=== PATIENT | female | born 1965 | race Caucasian/White ===

== ENCOUNTER 2017-02-27 20:37 | Inpatient (IN) ==
[~2017-02-27 20:37] MED LIST: *HR* Etomidate 20 MG/10 ML AMPUL IVP ONE; *HR* Midazolam HCl 2 MG/2 ML VIAL IV ONE; *HR* Midazolam HCl 5 MG/5 ML VIAL IVP ONE
--- NOTE | 2017-02-27 23:35 | Anesthesia Procedures ---
Date of Encounter: 02/27/17 Time of Encounter: 11:20 Procedures: Anesthesia - Intubation Time out performed: Yes Sedative: Etomidate Amount Sedative given: 20mg Laryngoscope: video scope (Storz D-MAC) Assist device used: video scope ET Tube Size: 7 Tube secured depth (cm): 24 Tube secured location: lips Tube Placement Confirmation: visualized tube passing through cords, equal breath sounds bilaterally, confirmation by colorimetric device Patient tolerated procedure: no complications Intubation complications: difficult intubation (Anterior airway. Grade 2 view with D-Mac after additional sedation.) Additional comments: Multiple attempts prior to [employer] arrival. Small amount of bleeding in back of throat present. Able to secure airway with additional sedation.
[2017-02-27] MEDS ORDERED: *HR* Midazolam HCl 2 MG/2 ML VIAL IV ONE (23:43)
[2017-02-27] MEDS ORDERED: Naloxone 0.4 MG/ML INJ IVP PRN (23:43)
[2017-02-27] MEDS ORDERED: Lacri-Lube 3.5 GM TUBE BOTH EYES PRN (23:43)
[2017-02-27] MEDS ORDERED: Acetaminophen 325 MG TABLET PO PRN (23:43)
[2017-02-27] MEDS ORDERED: 0.9 % Sodium Chloride w KCl 20 MEQ/1,000 ML MLS IVC SCH (23:45)
[2017-02-28 00:18] LABS: Amphetamine Screen,Urine Negative ng/mL (Cutoff=1000); Barbiturate Screen,Urine Negative ng/mL (Cutoff=200); Benzodiazepines Screen,Urine Positive ng/mL (Cutoff=200); Cannabinoid Screen,Urine Negative ng/mL (Cutoff = 50); Cocaine Screen,Urine Negative ng/mL (Cutoff= 300); Opiate Screen,Urine Negative ng/mL (Cutoff=300); Phencyclidine Screen,Urine Negative ng/mL (Cutoff=25)
[2017-02-28 00:45] LABS: ABG Base Excess 1 mEq/L (-2 to 3); ABG HCO3 28 mEq/L (21-27); ABG Oxygen Saturation 95 % (95-98); ABG PCO2 55 mmHg (35-45); ABG PH 7.31 pH Units (7.32-7.45); ABG PO2 86 mmHg (85-104); ABG TCO2 29 mEq/L (20-26); Blood Gas Modality ASSIST CONTROL; Blood Gas PEEP 5 cm H2O; Blood Gas Respiration Rate 14; Blood Gas VT 500 cc
[2017-02-28] MEDS: Lacri-Lube 3.5 GM TUBE BOTH EYES SCH ×6 (00:47→21:14)
--- NOTE | 2017-02-28 00:53 | Internal Med History&Physical ---
Date of Encounter: 02/27/17 Time of Encounter: 23:00 Assessment and Plan (1) Acute respiratory failure Current visit: Yes Status: Acute 1. Patient arrived and we called a Rapid Response immediately upon arrival due to respiratory failure and inability to maintain her airway. 2. ETT secured as in [place]. 3. Continue mechanical ventilation, sedation, and life-supporting measures in ICU. 4. Will monitor ABG's and adjust ventilator to correct respiratory acidosis. 5. Consult Pulmonology to assume care in the morning in ICU. Total of 75 minutes critical care thus far caring for patient. Qualifiers: Respiratory failure complication: hypoxia and hypercapnia Qualified Code(s) : J96.01 - Acute respiratory failure with hypoxia; J96.02 - Acute respiratory failure with hypercapnia; J96.02 - Acute respiratory failure with hypercapnia; J96.02 - Acute respiratory failure with hypercapnia (2) Tricyclic overdose Current visit: Yes Status: Acute 1. Patient is receiving activated charcoal via OG tube now that her airway is secured with ETT. 2. Patient is receiving Sodium Bicarbonate per Poison Control guidance. 3. Monitor on telemetry in ICU. 4. Serial EKG's to monitor QRS and QTc intervals. 5. Supportive measures in ICU. 6. Suicide precautions and 24 hour sitter once patient is awake and extubated. 7. Consult psychiatry once patient medically stabilized. Qualifiers: Encounter type: initial encounter Injury intent: intentional self-harm Qualified Code(s): T43.012A - Poisoning by tricyclic antidepressants, intentional self-harm, initial encounter (3) DVT prophylaxis Current visit: Yes Status: Acute 1. Heparin SQ. Internal Medicine - H&P: HPI Chief complaint: suicide attempt; amitryptiline overdose Admitted From: Hospital to Hospital Transfer Plans for Post Hospital Care: Transfer Psych Facility History of present illness: Ms. Peter is a 52 year old female who was transferred here from [facility] ER for suicide attempt with ingestion of 18 pills of amitriptyline 100 mg dose. Per my discussions with the ER staff, patient was awake, alert, conversant, and "pissed off at the world". She was actively suicidal and was transferred here for ongoing care and psychiatry consultation. Per my discussions with the ER staff, patient had no untoward effects at that moment and had no airway, respiratory, or hemodynamic issues. Once patient arrived to the floor with transportation, there was an immediate call for help to her room by the transport medics as she was having respiratory compromise. I came to the bedside immediately as I was at a patient's room nearby. Patient was having difficulty maintaining a patent airway, had periods of apnea, and was unresponsive. Pupils were dilated roughly 5-6 mm, and I could not appreciate a gag reflex. She did have a pulse. Because of her unresponsiveness and inability to protect her airway, I called for rapid response and we proceeded with intubation. Intubation was difficult due to a very anterior airway. Respiratory therapy failed twice, and then I proceeded to attempt an airway. Unfortunately, I failed as well, and then I called for anesthesia support. Patient continued to received bag mask ventilation. Once anesthesia arrived, they were able to secure an airway on the second attempt. Once an airway was secured, patient was moved to intensive care unit and stabilized. I spoke with poison control center and noted that on her second EKG, she was starting to have some QRS prolongation of roughly 115 ms. Her prior EKG had a QRS of 95 ms. Poison control recommended giving sodium bicarbonate now and to recheck an EKG in a few hours. We are proceeding with such measures. Additionally, I did order activated charcoal to be given through her OG tube now that we have an airway established. Of note, she did have a suicide note which confirms her intent to hurt herself. Additionally, the pills she took were those from a friend. They were brought by transport medics. I gave those meds to the pharmacist to confirm, and she confirmed that they were amitriptyline. I then asked her to destroy them. Past Med Surg Social Fam HX - Past Medical History Source: old records reviewed, other (discussions with [facility] ER staff) Medical history: GERD, hypertension Psychiatric history: depression, prior suicide attempt - Past Surgical History Surgical History: cholecystectomy - Social History Smoking Status: Current every day smoker Smokeless Tobacco Status: No Alcohol use: rarely, recent Drug use: none - Family History Mother Family Member Ethnicity: Non- Hx Family Cardiac Disorders: Yes Hx Family Respiratory Disorders: No Hx Family Cancer: No Hx Family GI Disorders: No Hx Family Endocrine Disorder: No Hx Family Neuromuscular Disorders: No Hx Family Neurologic Disorders: No Hx Family HEENT Disorders: No Hx Family Autoimmune Disorders: No Internal Medicine - H&P: Meds Lisinopril [Zestril] 20 mg PO DAILY 01/18/17 [History] PARoxetine HCl [Paroxetine HCl] 10 mg PO HS 02/27/17 [History] Prazosin [Minipress] 1 mg PO BID 02/27/17 [History] Ranitidine HCl [Heartburn Relief] 150 mg PO HS 02/27/17 [History] hydrOXYzine HCl [Hydroxyzine HCl] 25 mg PO DAILY 02/27/17 [History] 3 Allergy/AdvReac Type Severity Reaction Status Date / Time codeine AdvReac Itching Verified 07/18/15 20:25 naproxen AdvReac Gastrointestinal Verified 07/18/15 23:37 Upset ROS unobtainable: due to endotracheal tube, due to mental status - Constitutional Vitals: Temp Pulse Resp BP Pulse Ox 96.7 F L 95 14 104/78 97 02/27/17 23:35 02/28/17 00:31 02/28/17 00:31 02/28/17 00:31 02/28/17 00:31 Exam: unresponsiveness and unable to protect airway upon arrival; short periods of apnea as well - Head Head exam: Present: atraumatic, normal inspection - Expanded Head Exam Head exam expanded: Absent: abrasion, contusion, general tenderness, laceration - Eye Eye exam: Absent: scleral icterus Additional comments: pupils 5-6 mm bilaterally - ENT ENT exam: Present: mucous membranes dry, normal exam - Neck Neck exam general surgery: Present: full ROM, supple, trachea midline. Absent: lymphadenopathy, tenderness, nuchal rigidity, thyromegaly - Respiratory Respiratory exam: Present: accessory muscle use, rhonchi. Absent: chest wall tenderness, rales, wheezes Additional comments: periods of apnea - Cardiovascular Cardiovascular exam: Present: RRR, +S1, +S2. Absent: diastolic murmur, JVD, systolic murmur - GI/Abdominal GI/Abdominal exam: Present: soft. Absent: hepatomegaly, splenomegaly, tenderness, no peritoneal signs - Extremities Exam Extremities exam: Present: normal capillary refill, warm, radial pulses palpable and symmetrical. Absent: cyanotic, joint swelling, pedal edema, tenderness Additional comments: no obvious cut kurtz, injection sites, or signs of self inflicted injury to her extremities or her skin - Back Exam Back exam: Present: normal inspection - Neurological Exam Additional comments: unresponsive on arrival; unable to protect airway - Psychiatric Psychiatric exam: Present: suicidal ideation Additional comments: suicide attempt as noted above - Skin Skin exam: Present: dry, warm. Absent: rash Additional comments: no cut kurtz, injection sites, or signs of self mutilation Internal Med - H&P Results - Labs Labs: I reviewed labs from [facility] include the following: WBC 8.0 Hemoglobin 13.5 Hematocrit 37.8 Platelets 243 Sodium 142 Potassium 3.5 Chloride 108 Carbon dioxide 21 BUN 15 Creatinine 0.73 Glucose 121 Urine drug screen: Negative at [facility]; I repeated it here and it was positive for benzodiazepines, but this is indicative of Versed administered for intubation. The rest of her toxicology screen was negative. She did have alcohol in her system at [facility] with a level 137 mg/dL. - EKG Data -: EKG Interpreted by Myself EKG shows normal: sinus rhythm - EKG Data Prior EKG available for review: yes EKG comments: 02/28/17 01:04 Sinus rhythm with initial QRS of 95 ms at [facility], followed by QRS duration of 115 ms once in ICU. QTc interval 440 ms. - Diagnostic Studies Chest x-ray Status: image reviewed by me (ETT in place)
[2017-02-28 03:15] LABS: ABG Base Excess 2 mEq/L (-2 to 3); ABG HCO3 28 mEq/L (21-27); ABG Oxygen Saturation 91 % (95-98); ABG PCO2 48 mmHg (35-45); ABG PH 7.37 pH Units (7.32-7.45); ABG PO2 63 mmHg (85-104); ABG TCO2 29 mEq/L (20-26); Blood Gas Modality ASSIST CONTROL; Blood Gas PEEP 5 cm H2O; Blood Gas Respiration Rate 14; Blood Gas VT 500 cc
[2017-02-28 03:51] LABS: Prothrombin Time 10.9 Seconds (9.4-12.1)
[2017-02-28 04:01] LABS: Activated Partial Thrombo Time 16.6 Seconds (26.0-36.0)
[2017-02-28 04:08] LABS: Alanine Aminotransferase 18 Units/L (0-55); Albumin 3.2 g/dL (3.5-5.0); Albumin/Globulin Ratio 0.9 (1.1-2.2); Alkaline Phosphatase 106 Units/L (38-126); Aspartate Amino Transferase 23 Units/L (5-34); BUN/Creatinine Ratio 21 (6-26); Bilirubin,Total 0.5 mg/dL (0.2-1.2); Blood Urea Nitrogen 15 mg/dL (7-20); Calcium 8.3 mg/dL (8.6-10.8); Carbon Dioxide 21 mEq/L (19-29); Chloride 110 mEq/L (98-109); Globulin 3.5 g/dL (2.4-3.5); Glucose 124 mg/dL (70-99); Osmolality,Calculated 294 (280-300); Potassium 4.6 mEq/L (3.5-4.5); Sodium 141 mEq/L (136-145); Total Protein 6.7 g/dL (6.0-8.3); eGFR For African Americans > 60 (> 60); eGFR For Non-African Americans > 60 (> 60)
[2017-02-28] MEDS: Sodium Bicarbonate 150 MEQ in D5% in Water 1,000 ML IVC SCH ×3 (04:30→16:59)
--- NOTE | 2017-02-28 04:39 | Event Note ---
Date of Encounter: 02/28/17 Time of Encounter: 04:00 ABG stable; repeat EKG with improvement in QRS but still prolonged. I changed her MIV to D5W with 3 amps NaHCO3 as recommended by poison control per our prior conversation. Will repeat EKG later this morning.
[2017-02-28 05:27] LABS: Basophils # 0.1 K/mcL (0.0-0.2); Basophils % 0.3 %; Eosinophils # 0.1 K/mcL (0.0-0.6); Eosinophils % 0.6 %; Hematocrit 42.4 % (35.3-44.9); Hemoglobin 13.8 g/dL (11.5-15.4); Immature Granulocytes % 0.5 % (0-4); Immature Platelets 2.7 % (1.1-6.1); Lymphocytes # 1.8 K/mcL (0.6-4.6); Lymphocytes % 10.3 %; Mean Corpuscular HGB Conc 32.5 g/dL (31.6-35.5); Mean Corpuscular Hemoglobin 30.3 pg (28.0-33.3); Mean Corpuscular Volume 93.2 fL (83.0-100.0); Mean Platelet Volume 9.8 fL (9.4-12.4); Monocytes # 1.2 K/mcL (0.0-1.3); Monocytes % 6.5 %; Platelet Count 195 K/mcL (140-400); Red Blood Count 4.55 M/mcL (3.82-4.97); Red Cell Distribution Width 11.9 % (11.5-14.5); Segmented Neutrophils % 81.8 %
[2017-02-28 05:28] LABS: Neutrophils # 14.5 K/mcL (1.6-8.9)
[2017-02-28] MEDS: *HR* Heparin 5,000 UNIT/ML VIAL SQ SCH ×2 (05:41→17:22)
[2017-02-28] MEDS: Pantoprazole 40 MG VIAL IVPB SCH (05:41)
[2017-02-28] MEDS: Docusate Oral Soln 100 MG/10 ML UDC GTUBE SCH ×2 (08:40→21:12)
[2017-02-28] MEDS: Chlorhexidine Rinse 15 ML MOUTHWASH MM SCH ×2 (08:40→21:14)
--- NOTE | 2017-02-28 09:10 | Pulmonology Progress Note ---
<TashDurga W - Last Filed: 02/28/17 10:01> Date of Encounter: 02/28/17 Objective PUL Vital signs: Last Vital Signs Temp 98.5 F 02/28/17 07:50 Pulse 118 02/28/17 08:30 Resp 21 02/28/17 08:30 BP 130/88 02/28/17 08:30 Pulse Ox 96 02/28/17 08:30 Ventilator Settings Ventilator Settings: Ventilator Settings, Last 8 Hours Ventilator Mode VC+ Ventilator Mode VC+ Ventilator Mode VC+ Ventilator Mode VC+ Ventilator Mode VC+ Ventilator Mode VC+ Ventilator Mode VC+ Ventilator Mode VC+ Ventilator Mode VC+ Ventilator Mode VC+ Ventilator Mode VC+ Ventilator Mode VC+ Ventilator Tidal Volume 500 Setting Ventilator Tidal Volume 500 Setting Ventilator Tidal Volume 500 Setting Ventilator Tidal Volume 500 Setting Ventilator Tidal Volume 500 Setting Ventilator Tidal Volume 500 Setting Ventilator Tidal Volume 500 Setting Ventilator Tidal Volume 500 Setting Ventilator Tidal Volume 500 Setting Ventilator Tidal Volume 500 Setting Ventilator Tidal Volume 500 Setting Ventilator Tidal Volume 500 Setting Ventilator Respiratory Rate 14 Setting Ventilator Respiratory Rate 14 Setting Ventilator Respiratory Rate 14 Setting Ventilator Respiratory Rate 14 Setting Ventilator Respiratory Rate 14 Setting Ventilator Respiratory Rate 14 Setting Ventilator Respiratory Rate 14 Setting Ventilator Respiratory Rate 14 Setting Ventilator Respiratory Rate 14 Setting Ventilator Respiratory Rate 14 Setting Ventilator Respiratory Rate 14 Setting Ventilator Respiratory Rate 14 Setting Actual Respiratory Rate 21 Actual Respiratory Rate 18 Actual Respiratory Rate 20 Actual Respiratory Rate 18 Actual Respiratory Rate 16 Actual Respiratory Rate 18 Actual Respiratory Rate 14 Actual Respiratory Rate 14 Actual Respiratory Rate 14 Actual Respiratory Rate 14 Actual Respiratory Rate 14 Positive End Expiratory 5 Pressure Positive End Expiratory 5 Pressure Positive End Expiratory 5 Pressure Positive End Expiratory 5 Pressure Positive End Expiratory 5 Pressure Positive End Expiratory 5 Pressure Positive End Expiratory 5 Pressure Positive End Expiratory 5 Pressure Positive End Expiratory 5 Pressure Positive End Expiratory 5 Pressure Positive End Expiratory 5 Pressure Positive End Expiratory 5 Pressure Peak Inspiratory Airway 29 Pressure Peak Inspiratory Airway 38 Pressure Peak Inspiratory Airway 38 Pressure Peak Inspiratory Airway 42 Pressure Peak Inspiratory Airway 38 Pressure Peak Inspiratory Airway 33 Pressure Peak Inspiratory Airway 33 Pressure Peak Inspiratory Airway 31 Pressure Peak Inspiratory Airway 30 Pressure Results - Laboratory Findings CBC and BMP: 02/28/17 05:05 02/28/17 03:33 ABG ABG pH 7.37 pH Units (7.32-7.45) 02/28/17 03:11 ABG pCO2 48 mmHg (35-45) H 02/28/17 03:11 ABG pO2 63 mmHg (85-104) L 02/28/17 03:11 ABG O2 Saturation 91 % (95-98) L 02/28/17 03:11 PT/INR, D-dimer PT 10.9 Seconds (9.4-12.1) 02/28/17 03:33 Abnormal lab findings: Abnormal lab results WBC 17.7 K/mcL (4.3-11.1) H D 02/28/17 05:05 Neutrophils # 14.5 K/mcL (1.6-8.9) H 02/28/17 05:05 APTT 16.6 Seconds (26.0-36.0) L 02/28/17 03:33 ABG pCO2 48 mmHg (35-45) H 02/28/17 03:11 ABG pO2 63 mmHg (85-104) L 02/28/17 03:11 ABG HCO3 28 mEq/L (21-27) H 02/28/17 03:11 ABG Total CO2 29 mEq/L (20-26) H 02/28/17 03:11 ABG O2 Saturation 91 % (95-98) L 02/28/17 03:11 Potassium 4.6 mEq/L (3.5-4.5) H D 02/28/17 03:33 Chloride 110 mEq/L (98-109) H 02/28/17 03:33 Glucose 124 mg/dL (70-99) H 02/28/17 03:33 Calcium 8.3 mg/dL (8.6-10.8) L 02/28/17 03:33 Albumin 3.2 g/dL (3.5-5.0) L 02/28/17 03:33 Albumin/Globulin Ratio 0.9 (1.1-2.2) L 02/28/17 03:33 U Benzodiazepines Scrn Positive ng/mL (Peefrf=213) H 02/28/17 00:00 - Clinical Findings Intake & Output: Intake & Output 02/27/17 02/28/17 02/28/17 23:59 07:59 15:59 Intake Total 0 / 0 880 / 880 Output Total 0 / 0 935 / 935 Balance 0 / 0 -55 / -55 Weight 105.3 kg 105.3 kg Consult Discharge Plan - Plan Referrals: NONE,PCP [Primary Care Provider] - - Attending Attestation I examined this patient and my medical decision-making was reviewed with the Resident Physician. I agree with the documented findings, disposition and treatment plan as described except to the extent set forth below. We independently had [id number] contact with the patient Critical care performed: Time is exclusive of separately billable procedures. Time includes: direct patient care, patient reassessment, coordination of patient care, interpretation of data (laboratory data, radiology data, and respiratory data), review of patient's medical records, medical consultation and documentation of patient care Procedures excluded from critical care time: 35min Patient seen and examined at bedside Labs, radiology, chart personally reviewed. Management was reviewed during multidisciplinary critical care rounds. CUPOLA MELTER: Intubated and sedated on vent. appears to have presented with intentional overdose on TCA. Was sedated and not protecting airway requring intubation. Examination without focal deficit. Holding sedation for CUPOLA MELTER examination. Psych consult/sitter preacautions Pulm: Acute respiratory failure requiing intubation. Acceptable oxygenation/ ventilation today. repeat CXR today. Difficult intubation requiring anesthesia help after 3 prior attempts. Cuff leak prior to liberation Cards:QTC wnl today monitor on tele. Sodium Bicarb infusion for TCA overdose FEN-GI:NPO for PPI prophylaxis given Renal: No evidence of metabolic acidosis. Utox otherwise negative. Monitor Electrolytes per protocol ID: Leuckocytosis and tachycardic likely seconday to stress but have concern for severe sepsis. Jeffery Cultures obtained. CXR without focal process. Lacatate also elevated. Start empiric Abx for possible aspiration. IV crystalloid will be given. Heme/Onc: DVT prophylaxis given Endo: Glucose Monitored Integ/MSK: Skin Care per routine ICU Nursing Protocol to prevent ulcers. Lines: All lines examined without evidence of infection : Dispo: Remain in ICU for ongoing care CODE:Full Code. <Barbara Morgan - Last Filed: 02/28/17 14:35> Date of Encounter: 02/28/17 Time of Encounter: 08:20 Assessment and Plan (1) Acute respiratory failure Current Visit: Yes Status: Acute -likely resulting from tricyclic antidepressant overdose -currently intubated, on mechanical ventilation Qualifiers: Respiratory failure complication: hypoxia and hypercapnia Qualified Code(s) : J96.01 - Acute respiratory failure with hypoxia; J96.02 - Acute respiratory failure with hypercapnia; J96.02 - Acute respiratory failure with hypercapnia; J96.02 - Acute respiratory failure with hypercapnia (2) Severe sepsis Current Visit: Yes Status: Acute -possible source of infection: aspiration PNA -reported episode of vomiting and aspiration last night, patient becoming apneic and unresponsive -Day 1: Unasyn 3g -meets criteria for severe sepsis based on: -Temp 101.3, pulse 128, WBC 17.7, lactic acid 3.2, and acute respiratory failure (on ventilator) -peripheral blood cultures x2, urine culture, sputum culture ordered (3) Tricyclic overdose Current Visit: Yes Status: Acute -reported to have taken 18 pills of amytriptiline 100mg -serial EKG's to continue monitoring QRS and QTc changes -most recently QRS # and QTc # -sodium bicarb drip @ 75 mg/hr -suicide precautions, will need sitter once awake and extubated -once awake and medically stable, will consult psychiatry Qualifiers: Encounter type: initial encounter Injury intent: intentional self-harm Qualified Code(s): T43.012A - Poisoning by tricyclic antidepressants, intentional self-harm, initial encounter (4) Leukocytosis Current Visit: Yes Status: Acute -WBC 17.7 today, increase from [facility] labs showing WBC 8.0 -concern for aspiration PNA -Sputum cultures ordered -Day 1: Unasyn 3g IV Q6hr Qualifiers: Leukocytosis type: unspecified Qualified Code(s): D72.829 - Elevated white blood cell count, unspecified (5) DVT prophylaxis Current Visit: No Status: Acute -Heparin 5000 units SQ Q12hr Objective PUL Vital signs: Last Vital Signs Temp 98.5 F 02/28/17 07:50 Pulse 113 02/28/17 07:30 Resp 18 02/28/17 07:45 BP 133/95 02/28/17 07:30 Pulse Ox 95 02/28/17 07:45 Ventilator Settings Ventilator Settings: Ventilator Settings, Last 8 Hours Ventilator Mode VC+ Ventilator Mode VC+ Ventilator Mode VC+ Ventilator Mode VC+ Ventilator Mode VC+ Ventilator Mode VC+ Ventilator Mode VC+ Ventilator Mode VC+ Ventilator Mode VC+ Ventilator Mode VC+ Ventilator Mode VC+ Ventilator Tidal Volume 500 Setting Ventilator Tidal Volume 500 Setting Ventilator Tidal Volume 500 Setting Ventilator Tidal Volume 500 Setting Ventilator Tidal Volume 500 Setting Ventilator Tidal Volume 500 Setting Ventilator Tidal Volume 500 Setting Ventilator Tidal Volume 500 Setting Ventilator Tidal Volume 500 Setting Ventilator Tidal Volume 500 Setting Ventilator Tidal Volume 500 Setting Ventilator Respiratory Rate 14 Setting Ventilator Respiratory Rate 14 Setting Ventilator Respiratory Rate 14 Setting Ventilator Respiratory Rate 14 Setting Ventilator Respiratory Rate 14 Setting Ventilator Respiratory Rate 14 Setting Ventilator Respiratory Rate 14 Setting Ventilator Respiratory Rate 14 Setting Ventilator Respiratory Rate 14 Setting Ventilator Respiratory Rate 14 Setting Ventilator Respiratory Rate 14 Setting Actual Respiratory Rate 18 Actual Respiratory Rate 20 Actual Respiratory Rate 18 Actual Respiratory Rate 16 Actual Respiratory Rate 18 Actual Respiratory Rate 14 Actual Respiratory Rate 14 Actual Respiratory Rate 14 Actual Respiratory Rate 14 Actual Respiratory Rate 14 Positive End Expiratory 5 Pressure Positive End Expiratory 5 Pressure Positive End Expiratory 5 Pressure Positive End Expiratory 5 Pressure Positive End Expiratory 5 Pressure Positive End Expiratory 5 Pressure Positive End Expiratory 5 Pressure Positive End Expiratory 5 Pressure Positive End Expiratory 5 Pressure Positive End Expiratory 5 Pressure Positive End Expiratory 5 Pressure Peak Inspiratory Airway 38 Pressure Peak Inspiratory Airway 38 Pressure Peak Inspiratory Airway 42 Pressure Peak Inspiratory Airway 38 Pressure Peak Inspiratory Airway 33 Pressure Peak Inspiratory Airway 33 Pressure Peak Inspiratory Airway 31 Pressure Peak Inspiratory Airway 30 Pressure Results - Laboratory Findings CBC and BMP: 02/28/17 05:05 02/28/17 03:33 ABG ABG pH 7.37 pH Units (7.32-7.45) 02/28/17 03:11 ABG pCO2 48 mmHg (35-45) H 02/28/17 03:11 ABG pO2 63 mmHg (85-104) L 02/28/17 03:11 ABG O2 Saturation 91 % (95-98) L 02/28/17 03:11 PT/INR, D-dimer PT 10.9 Seconds (9.4-12.1) 02/28/17 03:33 Abnormal lab findings: Abnormal lab results WBC 17.7 K/mcL (4.3-11.1) H D 02/28/17 05:05 Neutrophils # 14.5 K/mcL (1.6-8.9) H 02/28/17 05:05 APTT 16.6 Seconds (26.0-36.0) L 02/28/17 03:33 ABG pCO2 48 mmHg (35-45) H 02/28/17 03:11 ABG pO2 63 mmHg (85-104) L 02/28/17 03:11 ABG HCO3 28 mEq/L (21-27) H 02/28/17 03:11 ABG Total CO2 29 mEq/L (20-26) H 02/28/17 03:11 ABG O2 Saturation 91 % (95-98) L 02/28/17 03:11 Potassium 4.6 mEq/L (3.5-4.5) H D 02/28/17 03:33 Chloride 110 mEq/L (98-109) H 02/28/17 03:33 Glucose 124 mg/dL (70-99) H 02/28/17 03:33 Calcium 8.3 mg/dL (8.6-10.8) L 02/28/17 03:33 Albumin 3.2 g/dL (3.5-5.0) L 02/28/17 03:33 Albumin/Globulin Ratio 0.9 (1.1-2.2) L 02/28/17 03:33 U Benzodiazepines Scrn Positive ng/mL (Qsyfzf=704) H 02/28/17 00:00 - Clinical Findings Intake & Output: Intake & Output 02/27/17 02/28/17 02/28/17 23:59 07:59 15:59 Intake Total 0 / 0 880 / 880 Output Total 0 / 0 935 / 935 Balance 0 / 0 -55 / -55 Weight 105.3 kg 105.3 kg
[2017-02-28] MEDS: FentaNYL (PF) 1,000 MCG in 0.9 % Sodium Chloride 80 ML IVC SCH ×3 (10:18→20:59)
[2017-02-28] MEDS ORDERED: Ringers Solution, Lactated 500 ML IVC ONE ×2 (11:30→12:00)
[2017-02-28] MEDS ORDERED: Ringers Solution, Lactated 1,000 ML IVC ONE ×2 (11:30→15:13)
[2017-02-28] MEDS ORDERED: Calcium Gluconate 1,000 MG in D5% in Water 100 ML IVPB PRN (11:43)
[2017-02-28] MEDS ORDERED: Potassium Phosphate 44 MEQ in 0.9 % Sodium Chloride 250 ML IVPB PRN (11:43)
[2017-02-28] MEDS ORDERED: Ampicillin/Sulbactam 3,000 MG in 0.9 % Sodium Chloride Mini Bag 100 ML IVPB SCH (12:00)
[2017-02-28 12:29] LABS: Ionized Calcium 1.07 mmol/L (1.15-1.35)
[2017-02-28 12:30] LABS: Magnesium 1.6 mg/dL (1.6-2.6)
[2017-02-28] MEDS: Ampicillin/Sulbactam 3,000 MG in 0.9 % Sodium Chloride Mini Bag 100 ML IVPB SCH ×2 (13:37→18:32)
--- NOTE | 2017-02-28 15:07 | Pre-Sedation Evaluation ---
Pre-sedation evaluation - Pre-sedation checklist Date of procedure: 02/28/17 Procedure: Bronchoscopy Recent Vitals: Last Vital Signs Temp 102 F H 02/28/17 14:00 Pulse 118 02/28/17 14:00 Resp 20 02/28/17 14:00 BP 95/56 02/28/17 14:00 Pulse Ox 94 02/28/17 14:00 H&P (including ROS) documented in medical record: Yes Previous reaction to sedatives/anesthetics: No Dietary Status: NPO after Midnight Possible difficult airway: No ASA Classification *see protocol: CLASS III-Severe systemic disease (Patient is intubated in ICU )
[2017-02-28] MEDS ORDERED: Ringers Solution, Lactated 1,000 ML ONE (15:19)
--- NOTE | 2017-02-28 16:35 | Procedure Note ---
<Gume Redmond - Last Filed: 02/28/17 16:36> Date of procedure: 02/28/17 Pre-op diagnosis: Hypotension Post-op diagnosis: same Procedure: Central venous catheter placement: Written consent was unable to be obtained, multiple attempts to reach the family were unsuccessful. It was agreed upon by the nursing staff as well as the attending physician that the procedure was emergent. Timeout was performed. The right inguinal area was surveyed using ultrasound and deemed to be a suitable target. The patient was cleaned and draped in the usual sterile fashion. Under ultrasound guidance the introducer needle was advanced into the right femoral vein. Dark red, nonpulsatile blood flow was returned. The guidewire was advanced through the introducer needle and into the right femoral vein without resistance. Using ultrasound the guidewire was visualized within the vein. The introducer needle was removed, and vivian in the skin was made, and the skin and soft tissues were dilated. A 20 cm, triple-lumen catheter was advanced over the guidewire and into the right femoral vein. The guidewire was removed intact. All 3 ports were tested and shown to draw blood and flushed easily. The catheter was sutured in place. The patient tolerated the procedure well, there are no immediate complications. Anesthesia: GETA Surgeon: Gume Redmond Estimated blood loss (cc): 5 IV fluids (cc): 10 Pathology: none sent Condition: critical Disposition: ICU <Durga Bianchi - Last Filed: 03/01/17 06:44> - Attending Attestation I agree with the note as entered by Dr Redmond. I was physically available for the entire procedure.
--- NOTE | 2017-02-28 16:37 | Electrocardiograph Report ---
[address] [place], [place] [address] Test Date: 2017-02-28 Pat Name: Allie Peter Department: 109 Room: [facility] Gender: F Sanipractic Physician: : [id number] Requested By: Valerio Mckeon Order Number: [id number] Reading MD: Isadora Clarke Measurements Intervals Centre Rate: 113 P: 32 OR: 157 QRS: 4 QRSD: 106 T: 55 QT: 336 QTc: 403 Interpretive Statements SINUS TACHYCARDIA Electronically Signed On 02-28-2017 16:35:56 EST by Isadora Clarke
--- NOTE | 2017-02-28 16:49 | Event Note ---
Date of Encounter: 02/28/17 Time of Encounter: 16:44 We have identified the patient's next of kin her adult son Trino she currently also has an estranged who per the son does not want "anything to do with her" she also has an adult daughter although Trino did not give her information to me it appears this is a very complex psychosocial situation and we have also asked the social service worker to help us with this. Clinically patient has progressed to hypoxemic respiratory failure with concern for ARDS we have instituted a low tidal volume ventilatory strategy and increased her PEEP because of worsening hypoxemia over the course the day. Also perform bronchoscopy because of thick purulent secretions and concern for aspiration. CT of the head was without acute cerebral process however gas was noted in the pharyngeal space we have discussed the case with the prototype model maker on-call (Dr Mckeon) and she is evaluating the images to see if this could potentially warrant of surgical intervention vs conservative mgnt. This likely happen ed as a result of trauma at the time of intubation. Given borderline blood pressure readings over the course of the day a central venous catheter was also inserted. All procedures were done on an emergent basis prior to knowledge of next of kin. Prognosis remains guarded
[2017-02-28 17:26] LABS: ABG Base Excess 4 mEq/L (-2 to 3); ABG HCO3 29 mEq/L (21-27); ABG Oxygen Saturation 94 % (95-98); ABG PCO2 47 mmHg (35-45); ABG PO2 72 mmHg (85-104); ABG TCO2 31 mEq/L (20-26); Blood Gas Modality ASSIST CONTROL; Blood Gas PEEP 14 cm H2O; Blood Gas Respiration Rate 18; Blood Gas VT 420 cc
--- NOTE | 2017-02-28 18:06 | ENT - Consult Note ---
Date of Encounter: 02/28/17 Time of Encounter: 18:02 Assessment and Plan (1) Acute respiratory failure Current Visit: Yes Status: Acute The most likely etiology of the free air noted incidentally on the head CT is from a laceration during the traumatic intubation. Certainly free air secondary to soft tissue infection in the neck is possible but much less likely. I would recommend waiting yet on neck CT unless she is in radiology for a chest CT and would get the neck at the same time. Will check on her again later tomorrow. Qualifiers: Respiratory failure complication: hypoxia and hypercapnia Qualified Code(s) : J96.01 - Acute respiratory failure with hypoxia; J96.02 - Acute respiratory failure with hypercapnia; J96.02 - Acute respiratory failure with hypercapnia; J96.02 - Acute respiratory failure with hypercapnia History of Present Illness Reason for ENT Consult: airway complication History of present illness: 52 yo female admitted last night after medication overdose. A CT of the head/ brain that I reviewed with incidental finding of free ear in the soft tissue of the posterior/right upper pharynx oropharynx/hypopharynx not seen on the films. Anesthesia note indicated a difficult intubation with blood noted after multiple attempts Past Med Surg Social Fam HX - Past Medical History Medical history: GERD, hypertension Psychiatric history: depression, prior suicide attempt - Past Surgical History Surgical History: cholecystectomy - Social History Smoking Status: Current every day smoker Smokeless Tobacco Status: No Alcohol use: rarely, recent Drug use: none - Family History Mother Family Member Ethnicity: Non- Hx Family Cardiac Disorders: Yes Hx Family Respiratory Disorders: No Hx Family Cancer: No Hx Family GI Disorders: No Hx Family Endocrine Disorder: No Hx Family Neuromuscular Disorders: No Hx Family Neurologic Disorders: No Hx Family HEENT Disorders: No Hx Family Autoimmune Disorders: No Medications and Allergies Lisinopril [Zestril] 20 mg PO DAILY 01/18/17 [History] PARoxetine HCl [Paroxetine HCl] 10 mg PO HS 02/27/17 [History] Prazosin [Minipress] 1 mg PO BID 02/27/17 [History] Ranitidine HCl [Heartburn Relief] 150 mg PO HS 02/27/17 [History] hydrOXYzine HCl [Hydroxyzine HCl] 25 mg PO DAILY 02/27/17 [History] 3 Allergy/AdvReac Type Severity Reaction Status Date / Time codeine AdvReac Itching Verified 02/28/17 09:49 naproxen AdvReac Gastrointestinal Verified 02/28/17 09:49 Upset ENT Exam Initial Vital Signs Resp Pulse Ox 8 91 02/27/17 22:50 02/27/17 22:50 - ENT Other (Unable to get a significant view of the oropharynx but a mild amt of old blood noted around the tongue and suction tubing) - Neck no masses, trachea midline, other (no significant edema and no crepitance (free air) noted.) Exam Initial Vital Signs Resp Pulse Ox 8 91 02/27/17 22:50 02/27/17 22:50 Results - Labs 02/28/17 05:05 02/28/17 03:33 Abnormal lab results WBC 17.7 K/mcL (4.3-11.1) H D 02/28/17 05:05 Neutrophils # 14.5 K/mcL (1.6-8.9) H 02/28/17 05:05 APTT 16.6 Seconds (26.0-36.0) L 02/28/17 03:33 ABG pCO2 47 mmHg (35-45) H 02/28/17 17:22 ABG pO2 72 mmHg (85-104) L 02/28/17 17:22 ABG HCO3 29 mEq/L (21-27) H 02/28/17 17:22 ABG Total CO2 31 mEq/L (20-26) H 02/28/17 17:22 ABG O2 Saturation 94 % (95-98) L 02/28/17 17:22 ABG Base Excess 4 mEq/L (-2 to 3) H 02/28/17 17:22 Potassium 4.6 mEq/L (3.5-4.5) H D 02/28/17 03:33 Chloride 110 mEq/L (98-109) H 02/28/17 03:33 Glucose 124 mg/dL (70-99) H 02/28/17 03:33 Lactic Acid 3.0 mmol/L (0.5-2.2) H 02/28/17 14:54 Calcium 8.3 mg/dL (8.6-10.8) L 02/28/17 03:33 Ionized Calcium 1.07 mmol/L (1.15-1.35) L 02/28/17 11:59 Phosphorus 2.0 mg/dL (2.3-4.7) L 02/28/17 11:59 Albumin 3.2 g/dL (3.5-5.0) L 02/28/17 03:33 Albumin/Globulin Ratio 0.9 (1.1-2.2) L 02/28/17 03:33 U Benzodiazepines Scrn Positive ng/mL (Mstcql=564) H 02/28/17 00:00 Diabetes panel 02/28/17 Range/Units 03:33 Sodium 141 (136-145) mEq/L Potassium 4.6 H D (3.5-4.5) mEq/L Chloride 110 H (98-109) mEq/L Carbon Dioxide 21 (19-29) mEq/L BUN 15 (7-20) mg/dL Creatinine 0.72 (0.57-1.11) mg/dL Glucose 124 H (70-99) mg/dL Calcium 8.3 L (8.6-10.8) mg/dL AST 23 (5-34) Units/L ALT 18 (0-55) Units/L Alkaline Phosphatase 106 (38-126) Units/L Albumin 3.2 L (3.5-5.0) g/dL Calcium panel 02/28/17 02/28/17 Range/Units 03:33 11:59 Calcium 8.3 L (8.6-10.8) mg/dL Phosphorus 2.0 L (2.3-4.7) mg/dL Albumin 3.2 L (3.5-5.0) g/dL Pituitary panel 02/28/17 Range/Units 03:33 Sodium 141 (136-145) mEq/L Potassium 4.6 H D (3.5-4.5) mEq/L Chloride 110 H (98-109) mEq/L Carbon Dioxide 21 (19-29) mEq/L BUN 15 (7-20) mg/dL Creatinine 0.72 (0.57-1.11) mg/dL Glucose 124 H (70-99) mg/dL Calcium 8.3 L (8.6-10.8) mg/dL Adrenal panel 02/28/17 Range/Units 03:33 Sodium 141 (136-145) mEq/L Potassium 4.6 H D (3.5-4.5) mEq/L Chloride 110 H (98-109) mEq/L Carbon Dioxide 21 (19-29) mEq/L BUN 15 (7-20) mg/dL Creatinine 0.72 (0.57-1.11) mg/dL Glucose 124 H (70-99) mg/dL Calcium 8.3 L (8.6-10.8) mg/dL Total Bilirubin 0.5 (0.2-1.2) mg/dL AST 23 (5-34) Units/L ALT 18 (0-55) Units/L Alkaline Phosphatase 106 (38-126) Units/L Albumin 3.2 L (3.5-5.0) g/dL All other labs normal. Consult Discharge Plan - Plan Referrals: NONE,PCP [Primary Care Provider] -
[2017-02-28 21:38] LABS: Magnesium 1.7 mg/dL (1.6-2.6)
[2017-02-28 21:40] LABS: Ionized Calcium 1.1 mmol/L (1.15-1.35)
[2017-03-01] MEDS: Lacri-Lube 3.5 GM TUBE BOTH EYES SCH ×6 (00:06→19:37)
[2017-03-01] MEDS: Ampicillin/Sulbactam 3,000 MG in 0.9 % Sodium Chloride Mini Bag 100 ML IVPB SCH ×4 (00:36→18:00)
[2017-03-01 03:57] LABS: ABG Base Excess 4 mEq/L (-2 to 3); ABG HCO3 30 mEq/L (21-27); ABG Oxygen Saturation 94 % (95-98); ABG PCO2 53 mmHg (35-45); ABG PH 7.36 pH Units (7.32-7.45); ABG PO2 73 mmHg (85-104); ABG TCO2 32 mEq/L (20-26); Blood Gas Modality VC; Blood Gas PEEP 14 cm H2O; Blood Gas Respiration Rate 18; Blood Gas VT 420 cc
[2017-03-01] MEDS: FentaNYL (PF) 3,000 MCG in 0.9 % Sodium Chloride 240 ML IVC SCH (03:58)
[2017-03-01 05:00] LABS: Hematocrit 32.3 % (35.3-44.9); Mean Corpuscular HGB Conc 32.5 g/dL (31.6-35.5); Mean Corpuscular Hemoglobin 30.4 pg (28.0-33.3); Mean Corpuscular Volume 93.6 fL (83.0-100.0); Platelet Count 153 K/mcL (140-400); Red Blood Count 3.45 M/mcL (3.82-4.97); Red Cell Distribution Width 12.2 % (11.5-14.5)
[2017-03-01 05:06] LABS: Ionized Calcium 1.11 mmol/L (1.15-1.35)
[2017-03-01 05:11] LABS: BUN/Creatinine Ratio 19 (6-26); Blood Urea Nitrogen 15 mg/dL (7-20); Calcium 8.1 mg/dL (8.6-10.8); Carbon Dioxide 29 mEq/L (19-29); Chloride 103 mEq/L (98-109); Glucose 119 mg/dL (70-99); Magnesium 2.4 mg/dL (1.6-2.6); Osmolality,Calculated 290 (280-300); Potassium 3.7 mEq/L (3.5-4.5); Sodium 139 mEq/L (136-145); eGFR For African Americans > 60 (> 60); eGFR For Non-African Americans > 60 (> 60)
[2017-03-01 05:14] LABS: Hemoglobin 10.5 g/dL (11.5-15.4)
[2017-03-01 05:27] LABS: Lymphocytes # 1.9 K/mcL (0.6-4.6); Monocytes # 0.3 K/mcL (0.0-1.3); Neutrophils # 13.6 K/mcL (1.6-8.9); Platelet Estimate Normal (Normal)
[2017-03-01] MEDS: Potassium Chloride 40 MEQ/200 ML BAG IVPB PRN ×2 (06:02→18:01)
[2017-03-01] MEDS: *HR* Heparin 5,000 UNIT/ML VIAL SQ SCH ×2 (06:02→18:01)
[2017-03-01] MEDS: Pantoprazole 40 MG VIAL IVPB SCH (06:02)
[2017-03-01 08:39] LABS: Source of Body Fluid rt.lower lobe
--- NOTE | 2017-03-01 08:40 | Pulmonology Progress Note ---
<Barbara Morgan - Last Filed: 03/01/17 09:19> Date of Encounter: 03/01/17 Time of Encounter: 08:00 Assessment and Plan (1) Acute respiratory failure Current Visit: Yes Status: Acute -remains on ventilator -evidence for moderate ARDS based on: -respiratory symptoms starting within 1 wk clinical insult (aspiration) -CXR shows new bibasilar opacities -presence of ARDS risk factors -PaO2/FiO2 is 121 mmHg and PEEP of 14 Qualifiers: Respiratory failure complication: hypoxia and hypercapnia Qualified Code(s) : J96.01 - Acute respiratory failure with hypoxia; J96.02 - Acute respiratory failure with hypercapnia; J96.02 - Acute respiratory failure with hypercapnia; J96.02 - Acute respiratory failure with hypercapnia (2) Severe sepsis Current Visit: Yes Status: Acute -lactic acid improved, 1.9 today -added norepinephrine for pressure support yesterday -blood pressure ranging systolic 90's / diastolic 60's today -possible source of infection: aspiration PNA -Day 2: Unasyn 3g IV Q6H -peripheral blood cultures x2, urine culture, sputum culture ordered (3) Tricyclic overdose Current Visit: Yes Status: Acute -reported to have taken 18 pills of amytriptiline 100mg -sodium bicarb drip @ 75 mg/hr -suicide precautions, will need sitter once awake and extubated -once awake and medically stable, will consult psychiatry Qualifiers: Encounter type: initial encounter Injury intent: intentional self-harm Qualified Code(s): T43.012A - Poisoning by tricyclic antidepressants, intentional self-harm, initial encounter (4) Leukocytosis Current Visit: Yes Status: Acute -improved, WBC 15.8 today -concern for aspiration PNA -Sputum cultures ordered, results pending -Day 2: Unasyn 3g IV Q6hr Qualifiers: Leukocytosis type: unspecified Qualified Code(s): D72.829 - Elevated white blood cell count, unspecified (5) DVT prophylaxis Current Visit: Yes Status: Acute -Heparin 5000 units SQ Q12hr Subjective Principal diagnosis: Acute respiratory failure, septic shock Interval history: Patient seen and examined this morning at bedside; she remains intubated and sedated. ROS were unable to be obtained d/t sedation. Objective PUL Vital signs: Last Vital Signs Temp 99.3 F 03/01/17 05:08 Pulse 97 03/01/17 08:00 Resp 18 03/01/17 08:00 BP 93/63 03/01/17 08:00 Pulse Ox 100 03/01/17 08:00 General appearance: comatose Neck: supple Effort: other (mechanical ventilation) Auscultation: bilateral: wheezes (anteriorly) Cardiovascular: regular rate and rhythm Gastrointestinal: absent bowel sounds, non-tender, non-distended Extremities: no cyanosis, no edema, cool Musculoskeletal: no deformities unable to assess due to mental status Ventilator Settings Ventilator Settings: Ventilator Settings, Last 8 Hours Ventilator Mode VC+ Ventilator Mode VC+ Ventilator Mode VC+ Ventilator Mode VC+ Ventilator Mode VC+ Ventilator Mode VC+ Ventilator Mode VC+ Ventilator Tidal Volume 420 Setting Ventilator Tidal Volume 420 Setting Ventilator Tidal Volume 420 Setting Ventilator Tidal Volume 420 Setting Ventilator Tidal Volume 420 Setting Ventilator Tidal Volume 420 Setting Ventilator Tidal Volume 420 Setting Ventilator Tidal Volume 420 Setting Ventilator Respiratory Rate 18 Setting Ventilator Respiratory Rate 18 Setting Ventilator Respiratory Rate 18 Setting Ventilator Respiratory Rate 18 Setting Ventilator Respiratory Rate 18 Setting Ventilator Respiratory Rate 18 Setting Ventilator Respiratory Rate 18 Setting Ventilator Respiratory Rate 18 Setting Actual Respiratory Rate 18 Actual Respiratory Rate 18 Actual Respiratory Rate 18 Actual Respiratory Rate 18 Positive End Expiratory 12 Pressure Positive End Expiratory 14 Pressure Positive End Expiratory 14 Pressure Positive End Expiratory 14 Pressure Positive End Expiratory 14 Pressure Positive End Expiratory 14 Pressure Positive End Expiratory 14 Pressure Positive End Expiratory 14 Pressure Peak Inspiratory Airway 29 Pressure Peak Inspiratory Airway 32 Pressure Peak Inspiratory Airway 32 Pressure Peak Inspiratory Airway 31 Pressure Peak Inspiratory Airway 30 Pressure Peak Inspiratory Airway 30 Pressure Peak Inspiratory Airway 30 Pressure Results - Laboratory Findings CBC and BMP: 03/01/17 04:35 03/01/17 04:35 ABG ABG pH 7.36 pH Units (7.32-7.45) 03/01/17 03:50 ABG pCO2 53 mmHg (35-45) H 03/01/17 03:50 ABG pO2 73 mmHg (85-104) L 03/01/17 03:50 ABG O2 Saturation 94 % (95-98) L 03/01/17 03:50 PT/INR, D-dimer PT 10.9 Seconds (9.4-12.1) 02/28/17 03:33 Abnormal lab findings: Abnormal lab results WBC 15.8 K/mcL (4.3-11.1) H 03/01/17 04:35 RBC 3.45 M/mcL (3.82-4.97) L 03/01/17 04:35 Hgb 10.5 g/dL (11.5-15.4) L D 03/01/17 04:35 Hct 32.3 % (35.3-44.9) L 03/01/17 04:35 Band Neutrophils % 44.0 % (0-4) H 03/01/17 04:35 Neutrophils # 13.6 K/mcL (1.6-8.9) H 03/01/17 04:35 APTT 16.6 Seconds (26.0-36.0) L 02/28/17 03:33 ABG pCO2 53 mmHg (35-45) H 03/01/17 03:50 ABG pO2 73 mmHg (85-104) L 03/01/17 03:50 ABG HCO3 30 mEq/L (21-27) H 03/01/17 03:50 ABG Total CO2 32 mEq/L (20-26) H 03/01/17 03:50 ABG O2 Saturation 94 % (95-98) L 03/01/17 03:50 ABG Base Excess 4 mEq/L (-2 to 3) H 03/01/17 03:50 Glucose 119 mg/dL (70-99) H 03/01/17 04:35 POC Glucose 117 (58-89) H 03/01/17 00:16 Calcium 8.1 mg/dL (8.6-10.8) L 03/01/17 04:35 Ionized Calcium 1.11 mmol/L (1.15-1.35) L 03/01/17 04:35 Albumin 3.2 g/dL (3.5-5.0) L 02/28/17 03:33 Albumin/Globulin Ratio 0.9 (1.1-2.2) L 02/28/17 03:33 U Benzodiazepines Scrn Positive ng/mL (Kefbrp=489) H 02/28/17 00:00 - Microbiology Findings Microbiology Findings: Microbiology, Last 48 Hours 02/28/17 14:50 Sputum Culture - Preliminary Sputum - Clinical Findings Intake & Output: Intake & Output 02/28/17 03/01/17 03/01/17 23:59 07:59 15:59 Intake Total 1402 / 1402 846 / 846 Output Total 300 / 300 250 / 250 Balance 1102 / 1102 596 / 596 Weight 108.9 kg Consult Discharge Plan - Plan Referrals: NONE,PCP [Primary Care Provider] - <Durga Bianchi W - Last Filed: 03/01/17 12:53> Date of Encounter: 03/01/17 Objective PUL Vital signs: Last Vital Signs Temp 98.0 F 03/01/17 12:25 Pulse 105 03/01/17 11:00 Resp 18 03/01/17 11:00 BP 106/69 03/01/17 11:00 Pulse Ox 99 03/01/17 11:00 Ventilator Settings Ventilator Settings: Ventilator Settings, Last 8 Hours Ventilator Mode VC+ Ventilator Mode VC+ Ventilator Mode VC+ Ventilator Mode VC+ Ventilator Mode VC+ Ventilator Tidal Volume 420 Setting Ventilator Tidal Volume 420 Setting Ventilator Tidal Volume 420 Setting Ventilator Tidal Volume 420 Setting Ventilator Tidal Volume 420 Setting Ventilator Tidal Volume 420 Setting Ventilator Respiratory Rate 18 Setting Ventilator Respiratory Rate 18 Setting Ventilator Respiratory Rate 18 Setting Ventilator Respiratory Rate 18 Setting Ventilator Respiratory Rate 18 Setting Ventilator Respiratory Rate 18 Setting Ventilator Respiratory Rate 18 Setting Ventilator Respiratory Rate 18 Setting Actual Respiratory Rate 18 Actual Respiratory Rate 18 Actual Respiratory Rate 18 Actual Respiratory Rate 18 Actual Respiratory Rate 18 Actual Respiratory Rate 18 Actual Respiratory Rate 18 Positive End Expiratory 12 Pressure Positive End Expiratory 12 Pressure Positive End Expiratory 12 Pressure Positive End Expiratory 12 Pressure Positive End Expiratory 12 Pressure Positive End Expiratory 12 Pressure Positive End Expiratory 14 Pressure Positive End Expiratory 14 Pressure Peak Inspiratory Airway 31 Pressure Peak Inspiratory Airway 32 Pressure Peak Inspiratory Airway 29 Pressure Peak Inspiratory Airway 31 Pressure Peak Inspiratory Airway 30 Pressure Peak Inspiratory Airway 29 Pressure Peak Inspiratory Airway 32 Pressure Peak Inspiratory Airway 32 Pressure Results - Laboratory Findings CBC and BMP: 03/01/17 04:35 03/01/17 11:50 ABG ABG pH 7.36 pH Units (7.32-7.45) 03/01/17 03:50 ABG pCO2 53 mmHg (35-45) H 03/01/17 03:50 ABG pO2 73 mmHg (85-104) L 03/01/17 03:50 ABG O2 Saturation 94 % (95-98) L 03/01/17 03:50 PT/INR, D-dimer PT 10.9 Seconds (9.4-12.1) 02/28/17 03:33 Abnormal lab findings: Abnormal lab results WBC 15.8 K/mcL (4.3-11.1) H 03/01/17 04:35 RBC 3.45 M/mcL (3.82-4.97) L 03/01/17 04:35 Hgb 10.5 g/dL (11.5-15.4) L D 03/01/17 04:35 Hct 32.3 % (35.3-44.9) L 03/01/17 04:35 Band Neutrophils % 44.0 % (0-4) H 03/01/17 04:35 Neutrophils # 13.6 K/mcL (1.6-8.9) H 03/01/17 04:35 APTT 16.6 Seconds (26.0-36.0) L 02/28/17 03:33 ABG pCO2 53 mmHg (35-45) H 03/01/17 03:50 ABG pO2 73 mmHg (85-104) L 03/01/17 03:50 ABG HCO3 30 mEq/L (21-27) H 03/01/17 03:50 ABG Total CO2 32 mEq/L (20-26) H 03/01/17 03:50 ABG O2 Saturation 94 % (95-98) L 03/01/17 03:50 ABG Base Excess 4 mEq/L (-2 to 3) H 03/01/17 03:50 Glucose 119 mg/dL (70-99) H 03/01/17 04:35 Calcium 8.1 mg/dL (8.6-10.8) L 03/01/17 04:35 Ionized Calcium 1.11 mmol/L (1.15-1.35) L 03/01/17 04:35 Albumin 3.2 g/dL (3.5-5.0) L 02/28/17 03:33 Albumin/Globulin Ratio 0.9 (1.1-2.2) L 02/28/17 03:33 Fluid Appearance Hazy (Clear) A 02/28/17 Unknown U Benzodiazepines Scrn Positive ng/mL (Swoxny=219) H 02/28/17 00:00 - Microbiology Findings Microbiology Findings: Microbiology, Last 48 Hours 02/28/17 Unknown Gram Stain - Final Right Lower Lobe Lung 02/28/17 14:50 Sputum Culture - Preliminary Sputum - Clinical Findings Intake & Output: Intake & Output 02/28/17 03/01/17 03/01/17 23:59 07:59 15:59 Intake Total 1402 / 1402 846 / 846 154 / 154 Output Total 300 / 300 250 / 250 250 / 250 Balance 1102 / 1102 596 / 596 -96 / -96 Weight 108.9 kg - Attending Attestation I examined this patient and my medical decision-making was reviewed with the Resident Physician. I agree with the documented findings, disposition and treatment plan as described except to the extent set forth below. We independently had [id number] contact with the patient Patient seen and examined at bedside Labs, radiology, chart personally reviewed. Management was reviewed during multidisciplinary critical care rounds. GEOSPATIAL TECHNICIAN: Sedated on vent coal [place] for severe hypoxemic respiratory failure head CT without acute process. 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 continue high PEEP low tidal volume ventilation strategy permissive hypercarbia as needed peak and plateau within normal limits today continue antimicrobials for aspiration Cards: Blood pressure stable QT prolongation secondary to [facility] overdose has normalized QRS slightly prolonged today no evidence of arrhythmia continue to monitor on telemetry with daily ECG FEN-GI: Start enteral nutrition continue PPI prophylaxis Renal: No acute kidney injury urine output remained acceptable continue to monitor likely begin diuresis over the next 12-24 hours based upon clinical course for ARDS ID: Severe sepsis lactate has normalized this is secondary to aspiration pneumonia continue Unasyn white count trending down de-escalate based upon cultures Heme/Onc: DVT prophylaxis given Endo: Glucose Monitored Integ/MSK: Skin Care per routine ICU Nursing Protocol to prevent ulcers. Lines: All lines examined without evidence of infection : Dispo: Remain in ICU for critical illness CODE: Full code
[2017-03-01] MEDS: Norepinephrine 4 MG in D5% in Water 250 ML IVC SCH ×2 (09:09→18:01)
[2017-03-01] MEDS: Sodium Bicarbonate 150 MEQ in D5% in Water 1,000 ML IVC SCH ×2 (09:09→18:01)
[2017-03-01] MEDS: Docusate Oral Soln 100 MG/10 ML UDC GTUBE SCH ×2 (09:13→22:13)
[2017-03-01] MEDS: Chlorhexidine Rinse 15 ML MOUTHWASH MM SCH ×2 (09:13→22:13)
[2017-03-01 10:39] LABS: Appearance of Body Fluid Hazy (Clear); Volume of Body Fluid 10 mL
--- NOTE | 2017-03-01 14:22 | Event Note ---
Date of Encounter: 03/01/17 Time of Encounter: 11:00 This is an addendum to the pulmonology progress note written today, 03/01/17. Physical Exam Neck: right-sided crepitus, lateral aspect Vascular: right DP pulse palpable, left DP pulse found with bedside doppler Extremities: b/l feet and hands cool to palpation without cyanosis. RLE ( starting at level of mid-thigh) is more erythematous and warmer than LLE. Right calf measures 16 cm and left calf measures 15.6 cm today.
--- NOTE | 2017-03-01 16:26 | ENT - Consult Note ---
Date of Encounter: 03/01/17 Time of Encounter: 16:23 Assessment and Plan (1) Acute respiratory failure Current Visit: Yes Status: Acute I would like to have a CT of the neck but preferably without an ETube. If she is unable to be extubated tomorrow I request that we go ahead and get the neck CT completed while she is intubated. Qualifiers: Respiratory failure complication: hypoxia and hypercapnia Qualified Code(s) : J96.01 - Acute respiratory failure with hypoxia; J96.02 - Acute respiratory failure with hypercapnia; J96.02 - Acute respiratory failure with hypercapnia; J96.02 - Acute respiratory failure with hypercapnia History of Present Illness History of present illness: F/U for free air noted on CT of neck. Staff felt crepitance in the right neck earlier today. She has had some improvement in overall condition because continuing concern of ARDS. Past Med Surg Social Fam HX - Past Medical History Medical history: GERD, hypertension Psychiatric history: depression, prior suicide attempt - Past Surgical History Surgical History: cholecystectomy - Social History Smoking Status: Current every day smoker Smokeless Tobacco Status: No Alcohol use: rarely, recent Drug use: none - Family History Mother Family Member Ethnicity: Non- Hx Family Cardiac Disorders: Yes Hx Family Respiratory Disorders: No Hx Family Cancer: No Hx Family GI Disorders: No Hx Family Endocrine Disorder: No Hx Family Neuromuscular Disorders: No Hx Family Neurologic Disorders: No Hx Family HEENT Disorders: No Hx Family Autoimmune Disorders: No Medications and Allergies Lisinopril [Zestril] 20 mg PO DAILY 01/18/17 [History] PARoxetine HCl [Paroxetine HCl] 10 mg PO HS 02/27/17 [History] Prazosin [Minipress] 1 mg PO BID 02/27/17 [History] Ranitidine HCl [Heartburn Relief] 150 mg PO HS 02/27/17 [History] hydrOXYzine HCl [Hydroxyzine HCl] 25 mg PO DAILY 02/27/17 [History] 3 Allergy/AdvReac Type Severity Reaction Status Date / Time codeine AdvReac Itching Verified 02/28/17 09:49 naproxen AdvReac Gastrointestinal Verified 02/28/17 09:49 Upset ENT Exam Initial Vital Signs Resp Pulse Ox 8 91 02/27/17 22:50 02/27/17 22:50 - ENT Other (unable to get oral exam secondary to ETube.) - Neck no masses, trachea midline (No obvious crepitance or induration noted in neck or mediastinum) Exam Initial Vital Signs Resp Pulse Ox 8 91 02/27/17 22:50 02/27/17 22:50 Results - Labs 03/01/17 04:35 03/01/17 11:50 Abnormal lab results WBC 15.8 K/mcL (4.3-11.1) H 03/01/17 04:35 RBC 3.45 M/mcL (3.82-4.97) L 03/01/17 04:35 Hgb 10.5 g/dL (11.5-15.4) L D 03/01/17 04:35 Hct 32.3 % (35.3-44.9) L 03/01/17 04:35 Band Neutrophils % 44.0 % (0-4) H 03/01/17 04:35 Neutrophils # 13.6 K/mcL (1.6-8.9) H 03/01/17 04:35 APTT 16.6 Seconds (26.0-36.0) L 02/28/17 03:33 ABG pCO2 53 mmHg (35-45) H 03/01/17 03:50 ABG pO2 73 mmHg (85-104) L 03/01/17 03:50 ABG HCO3 30 mEq/L (21-27) H 03/01/17 03:50 ABG Total CO2 32 mEq/L (20-26) H 03/01/17 03:50 ABG O2 Saturation 94 % (95-98) L 03/01/17 03:50 ABG Base Excess 4 mEq/L (-2 to 3) H 03/01/17 03:50 Glucose 119 mg/dL (70-99) H 03/01/17 04:35 Calcium 8.1 mg/dL (8.6-10.8) L 03/01/17 04:35 Ionized Calcium 1.11 mmol/L (1.15-1.35) L 03/01/17 04:35 Albumin 3.2 g/dL (3.5-5.0) L 02/28/17 03:33 Albumin/Globulin Ratio 0.9 (1.1-2.2) L 02/28/17 03:33 Fluid Appearance Hazy (Clear) A 02/28/17 Unknown U Benzodiazepines Scrn Positive ng/mL (Plekli=395) H 02/28/17 00:00 Diabetes panel 03/01/17 03/01/17 Range/Units 04:35 11:50 Sodium 139 (136-145) mEq/L Potassium 3.7 3.8 (3.5-4.5) mEq/L Chloride 103 (98-109) mEq/L Carbon Dioxide 29 (19-29) mEq/L BUN 15 (7-20) mg/dL Creatinine 0.77 (0.57-1.11) mg/dL Glucose 119 H (70-99) mg/dL Calcium 8.1 L (8.6-10.8) mg/dL Calcium panel 03/01/17 Range/Units 04:35 Calcium 8.1 L (8.6-10.8) mg/dL Phosphorus 4.0 D (2.3-4.7) mg/dL Pituitary panel 03/01/17 03/01/17 Range/Units 04:35 11:50 Sodium 139 (136-145) mEq/L Potassium 3.7 3.8 (3.5-4.5) mEq/L Chloride 103 (98-109) mEq/L Carbon Dioxide 29 (19-29) mEq/L BUN 15 (7-20) mg/dL Creatinine 0.77 (0.57-1.11) mg/dL Glucose 119 H (70-99) mg/dL Calcium 8.1 L (8.6-10.8) mg/dL Adrenal panel 03/01/17 03/01/17 Range/Units 04:35 11:50 Sodium 139 (136-145) mEq/L Potassium 3.7 3.8 (3.5-4.5) mEq/L Chloride 103 (98-109) mEq/L Carbon Dioxide 29 (19-29) mEq/L BUN 15 (7-20) mg/dL Creatinine 0.77 (0.57-1.11) mg/dL Glucose 119 H (70-99) mg/dL Calcium 8.1 L (8.6-10.8) mg/dL All other labs normal. Consult Discharge Plan - Plan Referrals: NONE,PCP [Primary Care Provider] -
[2017-03-02] MEDS: Ampicillin/Sulbactam 3,000 MG in 0.9 % Sodium Chloride Mini Bag 100 ML IVPB SCH ×3 (02:09→14:03)
[2017-03-02] MEDS: Lacri-Lube 3.5 GM TUBE BOTH EYES SCH ×5 (02:10→16:52)
[2017-03-02 05:05] LABS: ABG Base Excess 4 mEq/L (-2 to 3); ABG HCO3 30 mEq/L (21-27); ABG Oxygen Saturation 98 % (95-98); ABG PCO2 50 mmHg (35-45); ABG PH 7.38 pH Units (7.32-7.45); ABG PO2 106 mmHg (85-104); ABG TCO2 31 mEq/L (20-26); Blood Gas Modality VC; Blood Gas PEEP 10 cm H2O; Blood Gas Respiration Rate 18; Blood Gas VT 420 cc
[2017-03-02] MEDS: FentaNYL (PF) 3,000 MCG in 0.9 % Sodium Chloride 240 ML IVC SCH (05:07)
[2017-03-02 05:25] LABS: Ionized Calcium 1.19 mmol/L (1.15-1.35)
[2017-03-02 05:51] LABS: Magnesium 1.7 mg/dL (1.6-2.6)
[2017-03-02 05:52] LABS: Phosphorous 1.6 mg/dL (2.3-4.7)
--- NOTE | 2017-03-02 06:00 | Electrocardiograph Report ---
[address] [place] [address] Test Date: 2017-02-28 Pat Name: Allie Peter Department: 109 Room: 11 Gender: F Sales Attendant: : 1965 Requested By: Demian Cole Order Number: [id number] Reading MD: Chalo Ervin MD Measurements Intervals [place] Rate: 95 P: 49 MS: 182 QRS: 25 QRSD: 118 T: 53 QT: 393 QTc: 445 Interpretive Statements SINUS RHYTHM Electronically Signed On 03-02-2017 5:59:14 EST by Chalo Ervin MD
--- NOTE | 2017-03-02 06:02 | Electrocardiograph Report ---
[address] [place] [address] Test Date: 2017-02-28 Pat Name: Allie Peter Department: 109 Room: 11 Gender: F Size Tester: : 1965 Requested By: Barbara Morgan Order Number: [id number] Reading MD: Chalo Ervin MD Measurements Intervals [place] Rate: 106 P: 38 IA: 161 QRS: 13 QRSD: 106 T: 48 QT: 376 QTc: 438 Interpretive Statements SINUS TACHYCARDIA Electronically Signed On 03-02-2017 6:00:36 EST by Chalo Ervin MD
--- NOTE | 2017-03-02 06:11 | Electrocardiograph Report ---
[address] [place], [place] [address] Test Date: 2017-02-28 Pat Name: Allie Peter Department: 109 Room: [facility] Gender: F [employer] Rep: JAVIER : 1965 Requested By: Demian Cole Order Number: [id number] Reading MD: Chalo Ervin MD Measurements Intervals [place] Rate: 124 P: 44 [place]: 147 QRS: -7 QRSD: 105 T: 50 QT: 357 QTc: 431 Interpretive Statements SINUS TACHYCARDIA Electronically Signed On 03-02-2017 6:10:11 EST by Chalo Ervin MD
[2017-03-02] MEDS: *HR* Heparin 5,000 UNIT/ML VIAL SQ SCH (06:58)
[2017-03-02] MEDS: Pantoprazole 40 MG VIAL IVPB SCH (06:58)
--- NOTE | 2017-03-02 07:33 | Electrocardiograph Report ---
[address] [place] [address] Test Date: 2017-02-28 Pat Name: Allie Peter Department: 109 Room: 11 Gender: F [employer] Server: ALENA : 1965 Requested By: Barbara Morgan Order Number: [id number] Reading MD: Chalo Ervin MD Measurements Intervals [place] Rate: 116 P: 48 [place]: 151 QRS: 10 QRSD: 109 T: 51 QT: 338 QTc: 407 Interpretive Statements SINUS TACHYCARDIA INFERIOR MYOCARDIAL INFARCTION, PROBABLY OLD WITH POSTERIOR EXTENSION Electronically Signed On 03-02-2017 7:32:02 EST by Chalo Ervin MD
[2017-03-02] MEDS: Chlorhexidine Rinse 15 ML MOUTHWASH MM SCH (08:01)
[2017-03-02] MEDS: Docusate Oral Soln 100 MG/10 ML UDC GTUBE SCH (08:05)
--- NOTE | 2017-03-02 09:05 | Pulmonology Progress Note ---
<Gume Redmond - Last Filed: 03/02/17 09:03> Date of Encounter: 03/02/17 Time of Encounter: 09:03 Assessment and Plan (1) Acute respiratory failure Current Visit: Yes Status: Acute Qualifiers: Respiratory failure complication: hypoxia and hypercapnia Qualified Code(s) : J96.01 - Acute respiratory failure with hypoxia; J96.02 - Acute respiratory failure with hypercapnia; J96.02 - Acute respiratory failure with hypercapnia; J96.02 - Acute respiratory failure with hypercapnia (2) Septic shock Current Visit: Yes Status: Acute (3) Tricyclic overdose Current Visit: Yes Status: Acute Qualifiers: Encounter type: initial encounter Injury intent: intentional self-harm Qualified Code(s): T43.012A - Poisoning by tricyclic antidepressants, intentional self-harm, initial encounter Subjective Principal diagnosis: Acute respiratory failure, septic shock Objective PUL Vital signs: Last Vital Signs Temp 97.1 F L 03/02/17 07:43 Pulse 98 03/02/17 09:00 Resp 18 03/02/17 09:00 BP 114/72 03/02/17 09:00 Pulse Ox 98 03/02/17 09:00 Ventilator Settings Ventilator Settings: Ventilator Settings, Last 8 Hours Ventilator Mode VC+ Ventilator Mode VC+ Ventilator Mode VC+ Ventilator Mode VC+ Ventilator Mode VC+ Ventilator Mode VC+ Ventilator Mode VC+ Ventilator Mode VC+ Ventilator Tidal Volume 420 Setting Ventilator Tidal Volume 420 Setting Ventilator Tidal Volume 420 Setting Ventilator Tidal Volume 420 Setting Ventilator Tidal Volume 420 Setting Ventilator Tidal Volume 420 Setting Ventilator Tidal Volume 420 Setting Ventilator Tidal Volume 420 Setting Ventilator Respiratory Rate 18 Setting Ventilator Respiratory Rate 18 Setting Ventilator Respiratory Rate 18 Setting Ventilator Respiratory Rate 18 Setting Ventilator Respiratory Rate 18 Setting Ventilator Respiratory Rate 18 Setting Ventilator Respiratory Rate 18 Setting Ventilator Respiratory Rate 18 Setting Actual Respiratory Rate 20 Actual Respiratory Rate 18 Actual Respiratory Rate 18 Actual Respiratory Rate 18 Actual Respiratory Rate 18 Actual Respiratory Rate 18 Actual Respiratory Rate 18 Positive End Expiratory 5 Pressure Positive End Expiratory 8 Pressure Positive End Expiratory 8 Pressure Positive End Expiratory 8 Pressure Positive End Expiratory 10 Pressure Positive End Expiratory 10 Pressure Positive End Expiratory 10 Pressure Positive End Expiratory 10 Pressure Peak Inspiratory Airway 21 Pressure Peak Inspiratory Airway 25 Pressure Peak Inspiratory Airway 27 Pressure Peak Inspiratory Airway 26 Pressure Peak Inspiratory Airway 25 Pressure Peak Inspiratory Airway 27 Pressure Results - Laboratory Findings CBC and BMP: 03/01/17 04:35 03/01/17 11:50 ABG ABG pH 7.38 pH Units (7.32-7.45) 03/02/17 05:01 ABG pCO2 50 mmHg (35-45) H 03/02/17 05:01 ABG pO2 106 mmHg (85-104) H 03/02/17 05:01 ABG O2 Saturation 98 % (95-98) 03/02/17 05:01 PT/INR, D-dimer PT 10.9 Seconds (9.4-12.1) 02/28/17 03:33 Abnormal lab findings: Abnormal lab results WBC 15.8 K/mcL (4.3-11.1) H 03/01/17 04:35 RBC 3.45 M/mcL (3.82-4.97) L 03/01/17 04:35 Hgb 10.5 g/dL (11.5-15.4) L D 03/01/17 04:35 Hct 32.3 % (35.3-44.9) L 03/01/17 04:35 Band Neutrophils % 44.0 % (0-4) H 03/01/17 04:35 Neutrophils # 13.6 K/mcL (1.6-8.9) H 03/01/17 04:35 APTT 16.6 Seconds (26.0-36.0) L 02/28/17 03:33 ABG pCO2 50 mmHg (35-45) H 03/02/17 05:01 ABG pO2 106 mmHg (85-104) H 03/02/17 05:01 ABG HCO3 30 mEq/L (21-27) H 03/02/17 05:01 ABG Total CO2 31 mEq/L (20-26) H 03/02/17 05:01 ABG Base Excess 4 mEq/L (-2 to 3) H 03/02/17 05:01 Glucose 119 mg/dL (70-99) H 03/01/17 04:35 POC Glucose 142 (58-89) H 03/02/17 00:27 Calcium 8.1 mg/dL (8.6-10.8) L 03/01/17 04:35 Phosphorus 1.6 mg/dL (2.3-4.7) L D 03/02/17 04:50 Albumin 3.2 g/dL (3.5-5.0) L 02/28/17 03:33 Albumin/Globulin Ratio 0.9 (1.1-2.2) L 02/28/17 03:33 Fluid Appearance Hazy (Clear) A 02/28/17 Unknown U Benzodiazepines Scrn Positive ng/mL ([id number]) H 02/28/17 00:00 - Microbiology Findings Microbiology Findings: Microbiology, Last 48 Hours 02/28/17 14:54 Blood Culture - Preliminary Peripheral Venipuncture No growth. 02/28/17 12:53 Blood Culture - Preliminary Peripheral Venipuncture No growth. 02/28/17 Unknown Respiratory Culture - Preliminary Right Lower Lobe Lung Normal upper respiratory tract rex. No apparent pathogens isolated. 02/28/17 Unknown Urine Culture - Final Urine,[place] No growth. 02/28/17 14:50 Sputum Culture - Preliminary Sputum 02/28/17 Unknown Gram Stain - Final Right Lower Lobe Lung - Clinical Findings Intake & Output: Intake & Output 03/01/17 03/02/17 03/02/17 23:59 07:59 15:59 Intake Total 310 / 310 857 / 857 Output Total 400 / 400 1075 / 1075 Balance -90 / -90 -218 / -218 Weight 112.92 kg Consult Discharge Plan - Plan Referrals: NONE,PCP [Primary Care Provider] - <Durga Bianchi W - Last Filed: 03/02/17 15:04> Date of Encounter: 03/02/17 Objective PUL Vital signs: Last Vital Signs Temp 97.1 F L 03/02/17 11:47 Pulse 111 03/02/17 14:00 Resp 22 03/02/17 14:00 BP 133/85 03/02/17 14:00 Pulse Ox 94 03/02/17 14:00 Ventilator Settings Ventilator Settings: Ventilator Settings, Last 8 Hours Ventilator Mode VC+ Ventilator Mode VC+ Ventilator Mode VC+ Ventilator Mode VC+ Ventilator Mode VC+ Ventilator Tidal Volume 420 Setting Ventilator Tidal Volume 420 Setting Ventilator Tidal Volume 420 Setting Ventilator Tidal Volume 420 Setting Ventilator Tidal Volume 420 Setting Ventilator Respiratory Rate 18 Setting Ventilator Respiratory Rate 18 Setting Ventilator Respiratory Rate 18 Setting Ventilator Respiratory Rate 18 Setting Ventilator Respiratory Rate 18 Setting Actual Respiratory Rate 18 Actual Respiratory Rate 20 Actual Respiratory Rate 20 Actual Respiratory Rate 18 Actual Respiratory Rate 18 Positive End Expiratory 5 Pressure Positive End Expiratory 5 Pressure Positive End Expiratory 5 Pressure Positive End Expiratory 8 Pressure Positive End Expiratory 8 Pressure Peak Inspiratory Airway 25 Pressure Peak Inspiratory Airway 21 Pressure Peak Inspiratory Airway 21 Pressure Peak Inspiratory Airway 25 Pressure Peak Inspiratory Airway 27 Pressure Results - Laboratory Findings CBC and BMP: 03/02/17 12:39 03/02/17 04:50 ABG ABG pH 7.38 pH Units (7.32-7.45) 03/02/17 05:01 ABG pCO2 50 mmHg (35-45) H 03/02/17 05:01 ABG pO2 106 mmHg (85-104) H 03/02/17 05:01 ABG O2 Saturation 98 % (95-98) 03/02/17 05:01 PT/INR, D-dimer PT 10.9 Seconds (9.4-12.1) 02/28/17 03:33 Abnormal lab findings: Abnormal lab results WBC 13.1 K/mcL (4.3-11.1) H 03/02/17 12:39 RBC 3.21 M/mcL (3.82-4.97) L 03/02/17 12:39 Hgb 9.7 g/dL (11.5-15.4) L 03/02/17 12:39 Hct 30.3 % (35.3-44.9) L 03/02/17 12:39 Plt Count 138 K/mcL (140-400) L 03/02/17 12:39 Band Neutrophils % 44.0 % (0-4) H 03/01/17 04:35 Neutrophils # 10.7 K/mcL (1.6-8.9) H 03/02/17 12:39 APTT 16.6 Seconds (26.0-36.0) L 02/28/17 03:33 ABG pCO2 50 mmHg (35-45) H 03/02/17 05:01 ABG pO2 106 mmHg (85-104) H 03/02/17 05:01 ABG HCO3 30 mEq/L (21-27) H 03/02/17 05:01 ABG Total CO2 31 mEq/L (20-26) H 03/02/17 05:01 ABG Base Excess 4 mEq/L (-2 to 3) H 03/02/17 05:01 Sodium 135 mEq/L (136-145) L 03/02/17 04:50 Glucose 130 mg/dL (70-99) H 03/02/17 04:50 POC Glucose 119 (58-89) H 03/02/17 11:07 Calcium 8.1 mg/dL (8.6-10.8) L 03/02/17 04:50 Phosphorus 1.6 mg/dL (2.3-4.7) L D 03/02/17 04:50 AST 76 Units/L (5-34) H 03/02/17 04:50 Serum Total Protein 5.6 g/dL (6.0-8.3) L 03/02/17 04:50 Albumin 2.0 g/dL (3.5-5.0) L D 03/02/17 04:50 Globulin 3.6 g/dL (2.4-3.5) H 03/02/17 04:50 Albumin/Globulin Ratio 0.6 (1.1-2.2) L 03/02/17 04:50 Fluid Appearance Hazy (Clear) A 02/28/17 Unknown U Benzodiazepines Scrn Positive ng/mL ([id number]=903) H 02/28/17 00:00 - Microbiology Findings Microbiology Findings: Microbiology, Last 48 Hours 02/28/17 14:50 Sputum Culture - Final Sputum 02/28/17 14:54 Blood Culture - Preliminary Peripheral Venipuncture No growth. 02/28/17 12:53 Blood Culture - Preliminary Peripheral Venipuncture No growth. 02/28/17 Unknown Respiratory Culture - Preliminary Right Lower Lobe Lung Normal upper respiratory tract rex. No apparent pathogens isolated. 02/28/17 Unknown Urine Culture - Final Urine,[place] No growth. 02/28/17 Unknown Gram Stain - Final Right Lower Lobe Lung - Clinical Findings Intake & Output: Intake & Output 03/01/17 03/02/17 03/02/17 23:59 07:59 15:59 Intake Total 310 / 310 857 / 857 100 / 100 Output Total 400 / 400 1075 / 1075 400 / 400 Balance -90 / -90 -218 / -218 -300 / -300 Weight 112.92 kg - Attending Attestation I examined this patient and my medical decision-making was reviewed with the Resident Physician. I agree with the documented findings, disposition and treatment plan as described except to the extent set forth below. We independently had [id number] contact with the patient Patient seen and examined at bedside Labs, radiology, chart personally reviewed. Management was reviewed during multidisciplinary critical care rounds. 52-year-old woman with a past medical history of depression who presented with a suicide attempt with tricyclic became unresponsive needed emergent intubation this was a difficult intubation requiring what appears to be up to 6 attempts. Course complicated Complicated by aspiration pneumonia and ARDS. On today's examination patient off sedation as able to follow commands Oxygen saturation is 100% on 40% and 5 PEEP showing dramatic improvement in hypoxemia/ARDS physiology CT neck shows concern for esophageal perforation and likely mediastinitis She is being maintained on Unasyn for likely aspiration pneumonia and possible mediastinitis I discussed the case with her log turner and CT surgeon who recommended transfer to tertiary referral center for thoracic surgery evaluation of esophageal perforation. The patient's next of kin her son Trino was updated and agrees with plan She will remain on suicide precautions until evaluated by psychiatry. Rest per housestaff note
[2017-03-02 12:43] LABS: Alanine Aminotransferase 34 Units/L (0-55); Albumin/Globulin Ratio 0.6 (1.1-2.2); Alkaline Phosphatase 110 Units/L (38-126); Aspartate Amino Transferase 76 Units/L (5-34); BUN/Creatinine Ratio 17 (6-26); Bilirubin,Direct 0.5 mg/dL (0.0-0.5); Bilirubin,Indirect 0.4 mg/dL (0.0-1.2); Blood Urea Nitrogen 11 mg/dL (7-20); Calcium 8.1 mg/dL (8.6-10.8); Carbon Dioxide 27 mEq/L (19-29); Chloride 103 mEq/L (98-109); Globulin 3.6 g/dL (2.4-3.5); Glucose 130 mg/dL (70-99); Osmolality,Calculated 281 (280-300); Potassium 3.8 mEq/L (3.5-4.5); Sodium 135 mEq/L (136-145); Total Protein 5.6 g/dL (6.0-8.3); eGFR For African Americans > 60 (> 60); eGFR For Non-African Americans > 60 (> 60)
[2017-03-02 12:49] LABS: Basophils % 0.2 %; Eosinophils # 0.4 K/mcL (0.0-0.6); Hematocrit 30.3 % (35.3-44.9); Hemoglobin 9.7 g/dL (11.5-15.4); Immature Granulocytes % 1.9 % (0-4); Lymphocytes # 1.1 K/mcL (0.6-4.6); Lymphocytes % 8.2 %; Mean Corpuscular Hemoglobin 30.2 pg (28.0-33.3); Mean Corpuscular Volume 94.4 fL (83.0-100.0); Mean Platelet Volume 9.8 fL (9.4-12.4); Monocytes # 0.7 K/mcL (0.0-1.3); Monocytes % 5.3 %; Neutrophils # 10.7 K/mcL (1.6-8.9); Platelet Count 138 K/mcL (140-400); Red Blood Count 3.21 M/mcL (3.82-4.97); Red Cell Distribution Width 11.9 % (11.5-14.5); Segmented Neutrophils % 81.4 %
[2017-03-02 12:52] LABS: Bilirubin,Total 0.9 mg/dL (0.2-1.2)
[2017-03-02] MEDS: Norepinephrine 4 MG in D5% in Water 250 ML IVC SCH (15:55)
[2017-03-02 17:14] VITALS: BP 110/68
--- NOTE | 2017-03-02 18:27 | Discharge Summary ---
<Gume Redmond - Last Filed: 03/02/17 18:22> Date of Encounter: 03/02/17 Time of Encounter: 18:22 - Discharge Diagnosis (1) Acute respiratory failure Priority: Primary Status: Acute Qualifiers: Respiratory failure complication: hypoxia and hypercapnia Qualified Code(s) : J96.01 - Acute respiratory failure with hypoxia; J96.02 - Acute respiratory failure with hypercapnia; J96.02 - Acute respiratory failure with hypercapnia; J96.02 - Acute respiratory failure with hypercapnia (2) Septic shock Priority: Primary Status: Acute (3) Tricyclic overdose Priority: Primary Status: Acute Qualifiers: Encounter type: initial encounter Injury intent: intentional self-harm Qualified Code(s): T43.012A - Poisoning by tricyclic antidepressants, intentional self-harm, initial encounter (4) Esophageal rupture Priority: Primary Status: Acute - Discharge Medications Home Medications: Lisinopril [Zestril] 20 mg PO DAILY 01/18/17 [History] PARoxetine HCl [Paroxetine HCl] 10 mg PO HS 02/27/17 [History] Prazosin [Minipress] 1 mg PO BID 02/27/17 [History] Ranitidine HCl [Heartburn Relief] 150 mg PO HS 02/27/17 [History] hydrOXYzine HCl [Hydroxyzine HCl] 25 mg PO DAILY 02/27/17 [History] Allergies/Adverse Reactions: 3 Allergy/AdvReac Type Severity Reaction Status Date / Time codeine AdvReac Itching Verified 02/28/17 09:49 naproxen AdvReac Gastrointestinal Verified 02/28/17 09:49 Upset Labs on day of discharge: Labs from last 24 hours 03/02/17 03/02/17 03/02/17 12:39 11:07 05:01 WBC 13.1 H RBC 3.21 L Hgb 9.7 L Hct 30.3 L MCV 94.4 MCH 30.2 MCHC 32.0 RDW 11.9 Plt Count 138 L MPV 9.8 Immature Gran % 1.9 Seg Neutrophils % 81.4 Lymphocytes % 8.2 Monocytes % 5.3 Eosinophils % 3.0 Basophils % 0.2 Neutrophils # 10.7 H Lymphocytes # 1.1 Monocytes # 0.7 Eosinophils # 0.4 Basophils # 0.0 Sample Site R Brach ABG pH 7.38 ABG pCO2 50 H ABG pO2 106 H ABG HCO3 30 H ABG Total CO2 31 H ABG O2 Saturation 98 ABG Base Excess 4 H Tom Test N/A Respiration Rate 18 O2 Delivery Device Adult Vent Blood Gas Modality VC Inspired O2 50.0 Tidal Volume 420 PEEP 10 Sodium Potassium Chloride Carbon Dioxide BUN Creatinine Est GFR ( Amer) Est GFR (Non-Af Amer) BUN/Creatinine Ratio Glucose POC Glucose 119 H Calculated Osmolality Calcium Ionized Calcium Phosphorus Magnesium Total Bilirubin Direct Bilirubin Indirect Bilirubin AST ALT Alkaline Phosphatase Serum Total Protein Albumin Globulin Albumin/Globulin Ratio Fluid Seg Neutrophil % Fld Band Neutrophil % Fluid Lymphocytes % Fluid Monocytes % Fluid Eosinophils % Fluid Basophils % Fluid Other Cells % 03/02/17 03/02/17 02/28/17 04:50 00:27 Unknown WBC RBC Hgb Hct MCV MCH MCHC RDW Plt Count MPV Immature Gran % Seg Neutrophils % Lymphocytes % Monocytes % Eosinophils % Basophils % Neutrophils # Lymphocytes # Monocytes # Eosinophils # Basophils # Sample Site ABG pH ABG pCO2 ABG pO2 ABG HCO3 ABG Total CO2 ABG O2 Saturation ABG Base Excess Tom Test Respiration Rate O2 Delivery Device Blood Gas Modality Inspired O2 Tidal Volume PEEP Sodium 135 L Potassium 3.8 Chloride 103 Carbon Dioxide 27 BUN 11 Creatinine 0.66 Est GFR ( Amer) > 60 Est GFR (Non-Af Amer) > 60 BUN/Creatinine Ratio 17 Glucose 130 H POC Glucose 142 H Calculated Osmolality 281 Calcium 8.1 L Ionized Calcium 1.19 Phosphorus 1.6 L D Magnesium 1.7 Total Bilirubin 0.9 D Direct Bilirubin 0.5 Indirect Bilirubin 0.4 AST 76 H ALT 34 Alkaline Phosphatase 110 Serum Total Protein 5.6 L Albumin 2.0 L D Globulin 3.6 H Albumin/Globulin Ratio 0.6 L Fluid Seg Neutrophil % 45.0 Fld Band Neutrophil % Test Not Performed Fluid Lymphocytes % 10.0 Fluid Monocytes % 3.0 Fluid Eosinophils % Test Not Performed Fluid Basophils % Test Not Performed Fluid Other Cells % 42.0 Preliminary micro results at discharge 02/28/17 14:54 Blood Culture - Preliminary Peripheral Venipuncture No growth. 02/28/17 12:53 Blood Culture - Preliminary Peripheral Venipuncture No growth. 02/28/17 Unknown Respiratory Culture - Preliminary Right Lower Lobe Lung Normal upper respiratory tract rex. No apparent pathogens isolated. - Impressions ITS Impressions Chest X-Ray 02/27/17 23:50 IMPRESSION: No acute findings. D/ / My Cerda MD / My Cerda MD Interpreting Provider: My Cerda MD X-Ray 02/27/17 23:50 IMPRESSION: OG tube as above. D/ / My Cerda MD / My Cerda MD Interpreting Provider: My Cerda MD Chest X-Ray 02/28/17 12:15 IMPRESSION: Increased interstitial change seen in the right perihilar region and mid lung, which could be related to pneumonitis. Interval development of a retrocardiac opacity with loss of the the left hemidiaphragm suggestive of atelectasis or consolidation. D/ / Shan Ochoa MD / Shan Ochoa MD Interpreting Provider: Shan Ochoa MD Head CT 02/28/17 13:36 IMPRESSION: No acute intracranial abnormality. Small amount of right retropharyngeal and parapharyngeal soft tissue gas. D/ / Rob Starks MD / Rob Starks MD Interpreting Provider: Rob Starks MD Chest X-Ray 03/01/17 04:00 IMPRESSION: Small bilateral pleural effusions and bibasilar opacities, new. D/ / My Cerda MD / My Cerda MD Interpreting Provider: My Cerda MD Soft Tissue Neck CT 03/02/17 10:50 IMPRESSION: 1. Gas and fluid collection in the right superior mediastinum extending anteromedially does surround the proximal esophagus with additional soft tissue gas and inflammatory stranding extending into the right neck soft tissues. Although the aerodigestive tract is suboptimally evaluated due to the presence of enteric and endotracheal tubes, findings are suspicious for esophageal perforation. Tracheal injury is thought less likely due to the volume of fluid in the superior mediastinum. 2. Bilateral pleural effusions with dependent atelectasis. D/ / Harley Rangel MD / Harley Rangel MD Interpreting Provider: Harley Rangel MD Date of admission: 02/27/17 23:43 Primary care physician: PCP NONE Consults: 02/28/17 01:14 Consult to Pulmonology [CONS] Routine Consulting Provider: [facility]m [facility] Reason for Consult: Respiratory fialure; TCA overdose; ICU management Call Completed: No 02/28/17 15:46 Consult to ENT [CONS] Routine Consulting Provider: [facility] Reason for Consult: Sepsis/retropharyngeal gas on CT Call Completed: Yes 03/01/17 11:02 Consult to Nutrition [CONS] Routine Comment: Consulting Provider: NUTRITION Reason for Dietary Consult: TF Start and Manage Discharging clinician: Gume Redmond Anticipated date of discharge: 03/02/17 - Patient Status Disposition: Transfer Short-Term Hosp Condition: Critical Overall status at discharge: patient is not back to baseline - Discharge Instructions Follow Up With: NONE,PCP [Primary Care Provider] - - Hospital Course Hospital course: Ms. Peter is a 52 year old female with history of bipolar disorder and depression presented after a tricyclic antidepressant overdose. Patient was found to be not protecting her airway or controlling her secretions so she was intubated. It was apparently a difficult intubation with a minimum of 7 attempts until the patient was successfully intubated by anesthesia. The patient was transferred to the ICU. She was found to be in septic shock with presumed aspiration pneumonia. Given the patient's hypoxia, overdose, as well as her mental status when decreasing sedation a head CT was performed. Small amount of retroperitoneal air was noted on the head CT so an ear nose and throat consultation was obtained. Unfortunately a complete ENT evaluation was difficult given the patient's intubated status. On the following days the patient improved clinically however given her subcutaneous emphysema and inability to extubate we obtained a CT of the soft tissues of her neck which revealed a large amount of retropharyngeal and retroesophageal emphysema as well as a mediastinal fluid collection concerning for esophageal rupture. At that point we spoke with cardiothoracic surgery here at [facility] and they felt that the patient would be better served at a tertiary care facility so the decision was made to transfer. The patient's son was contacted and agreed with the transfer. The patient will be [facility] to [facility] in critical condition. - Time Spent with Patient Total time spent providing and/or coordinating discharge services: Physical Examination Vital Signs: Vital Signs, Last 4 Hours Temp Pulse Resp BP Pulse Ox 03/02/17 17:00 98.9 F 103 18 110/68 96 03/02/17 16:00 112 18 118/78 98 03/02/17 15:55 98.9 F 03/02/17 15:53 18 97 03/02/17 15:28 111 03/02/17 15:24 111 03/02/17 15:00 111 23 113/71 97 <Durga Bianchi W - Last Filed: 03/07/17 06:50> Date of Encounter: 03/07/17 - Impressions ITS Impressions Chest X-Ray 02/27/17 23:50 IMPRESSION: No acute findings. D/ / My Cerda MD / My Cerda MD Interpreting Provider: My Cerda MD X-Ray 02/27/17 23:50 IMPRESSION: OG tube as above. D/ / My Cerda MD / My Cerda MD Interpreting Provider: My Cerda MD Chest X-Ray 02/28/17 12:15 IMPRESSION: Increased interstitial change seen in the right perihilar region and mid lung, which could be related to pneumonitis. Interval development of a retrocardiac opacity with loss of the the left hemidiaphragm suggestive of atelectasis or consolidation. D/ / Shan Ochoa MD / Shan Ochoa MD Interpreting Provider: Shan Ochoa MD Head CT 02/28/17 13:36 IMPRESSION: No acute intracranial abnormality. Small amount of right retropharyngeal and parapharyngeal soft tissue gas. D/ / Rob Starks MD / Rob Starks MD Interpreting Provider: Rob Starks MD Chest X-Ray 03/01/17 04:00 IMPRESSION: Small bilateral pleural effusions and bibasilar opacities, new. D/ / My Cerda MD / My Cerda MD Interpreting Provider: My Cerda MD Soft Tissue Neck CT 03/02/17 10:50 IMPRESSION: 1. Gas and fluid collection in the right superior mediastinum extending anteromedially does surround the proximal esophagus with additional soft tissue gas and inflammatory stranding extending into the right neck soft tissues. Although the aerodigestive tract is suboptimally evaluated due to the presence of enteric and endotracheal tubes, findings are suspicious for esophageal perforation. Tracheal injury is thought less likely due to the volume of fluid in the superior mediastinum. 2. Bilateral pleural effusions with dependent atelectasis. D/ / Harley Rangel MD / Harley Rangel MD Interpreting Provider: Harley Rangel MD Date of admission: 02/27/17 23:43 Primary care physician: PCP NONE Consults: 02/28/17 01:14 Consult to Pulmonology [CONS] Routine Consulting Provider: [facility]m [facility] Reason for Consult: Respiratory fialure; TCA overdose; ICU management Call Completed: No 02/28/17 15:46 Consult to ENT [CONS] Routine Consulting Provider: [facility] Reason for Consult: Sepsis/retropharyngeal gas on CT Call Completed: Yes 03/01/17 11:02 Consult to Nutrition [CONS] Routine Comment: Consulting Provider: NUTRITION Reason for Dietary Consult: TF Start and Manage - Hospital Course Hospital course: Ms. Peter is a 52 year old female - Time Spent with Patient Total time spent providing and/or coordinating discharge services: - Attending Attestation I examined this patient and my medical decision-making was reviewed with the Resident Physician. I agree with the documented findings, disposition and treatment plan as described except to the extent set forth below. We independently had [id number] contact with the patient
--- NOTE | 2017-03-03 18:19 | Electrocardiograph Report ---
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
== END 2017-03-02 18:22 | disposition short-term general hospital (02) | DRG 812 ==
LOC: 3BNU → ICNU 23:37
PROVIDERS: ADMIT Pediatrics; ATTEND Internal Medicine

== ENCOUNTER 2018-02-16 10:15 | Observation (INO) ==
[2018-02-16] MEDS ORDERED: traZODone 50 MG TABLET PO PRN (14:15)
[2018-02-16] MEDS ORDERED: Naloxone 0.4 MG/ML INJ IVP PRN (14:16)
[2018-02-16] MEDS ORDERED: traMADol 50 MG TABLET PO PRN (14:40)
[2018-02-16] MEDS ORDERED: *HR* Promethazine 25 MG/ML VIAL IVP PRN (14:51)
--- NOTE | 2018-02-16 14:52 | Internal Med History&Physical ---
<Jacques Moyer Hedy - Last Filed: 02/16/18 15:29> Date of Encounter: 02/16/18 Time of Encounter: 13:30 Internal Medicine - H&P: HPI Chief complaint: Lip swelling Admitted From: Intrahospital Transfer Plans for Post Hospital Care: Home History of present illness: Ms. Peter is a 53 year old female w/PMH of HTN, GERD, previous GI bleeding d/t NSAIDS, chronic back pain r/t 3 deteriorated discs and fx, hx of DVT in RLE in February 2017 (stopped Xarelto in August 2017), depression, and previous suicide attempt approx. 2.5 years ago presents from the ED at [facility] w/CC of EDA- inhibitor aggravated angioedema of the lips. Patient reports symptoms began yesterday afternoon with one-sided swelling of the right side of lips and became worse overnight. Reports sore throat (pt. states that she had strep throat 3 weeks ago) and left ear pain/fullness. Pt. states she was intubated for overdose during suicide attempt with difficult intubation due to restricted airway as well as failed trach attempt. For this reason, pt. states that she is a DNRCCA DNI and does NOT want intubated ever again. Denies any suicidal thoughts or ideations currently. Pt. reports dizziness r/t left-ear fullness but fever, chills, nausea, vomiting, headache, changes in vision, unusual bleeding, abdominal pain, diarrhea, constipation, numbness, tingling, pre-syncope, or syncope. Past Med Surg Social Fam HX - Past Medical History Source: patient, old records reviewed Medical history: GERD, GI bleed (Previous), hypertension Additional medical history: ulcers Psychiatric history: depression, prior suicide attempt - Past Surgical History Surgical History: cholecystectomy Additional surgical history: ruptured esophagus, feeding tube, trach reversal - Social History Smoking Status: Current every day smoker Packs per day: 1/2 PPD Smokeless Tobacco Status: No Alcohol use: rarely Drug use: none Current living situation: Home Activity Level: Independent ambulation Recent Out of Country Travel Within the Last 8 Weeks: No Exposure or Possible Exposure to Illness During Travel: No - Family History Brother Race: Family Member Ethnicity: Non- Living Status: Age at : 55 Cause of : LA Hx Family Cardiac Disorders: Yes (LA) Father Race: Family Member Ethnicity: Non- Living Status: Still Living Hx Family Respiratory Disorders: Yes (Emphysema) Mother Race: Family Member Ethnicity: Non- Living Status: Age at : 75 Cause of : ALS Hx Family Cardiac Disorders: Yes Hx Family Neuromuscular Disorders: Yes (ALS) Sister Race: Family Member Ethnicity: Non- Living Status: Age at : 60 Cause of : Drug OD Hx Family Psychosocial Disorders: Yes (OD) Internal Medicine - H&P: Meds RX: Bisacodyl [Dulcolax] 5 mg PO DAILY 04/10/17 [History] Omeprazole [PriLOSEC] 20 mg PO DAILY 02/16/18 [History] RX: Baclofen [Lioresal] 10 mg PO TID 02/16/18 [History] RX: Famotidine [Pepcid] 20 mg PO BID 02/16/18 [History] RX: Furosemide [Lasix] 20 mg PO DAILY 02/16/18 [History] RX: Trazodone HCl 100 mg PO HS PRN 02/16/18 [History] RX: clonazePAM [Clonazepam] 1 mg PO TID 02/16/18 [History] RX: Lactobacillus [Culturelle] 2 each PO DAILY cap.sprink 02/17/18 [Rx] RX: cephALEXin [Keflex] 500 mg PO TID 6 Days #18 capsule 02/17/18 [Rx] Allergy/AdvReac Type Severity Reaction Status Date / Time lisinopril Allergy Swelling Verified 02/16/18 08:49 of Lip/Tongue/Throat morphine Allergy See Verified 02/16/18 09:07 Comments codeine AdvReac Itching Verified 05/06/17 15:56 naproxen AdvReac Gastrointestinal Verified 05/06/17 15:56 Upset All Systems PM: A 10-system review of systems was performed and is negative for pertinent findings except as documented above in the HPI. - Constitutional Constitutional: no chills, no fever(s), no night sweats - EENT Eyes: no change in vision, no discharge, no pain, no photophobia Ears: as per HPI, ear pain (Left), no ear discharge, no tinnitus Nose, mouth and throat: as per HPI, lip swelling, sore throat, no dysphagia, no nasal discharge, no neck pain - Breasts Breasts: as per HPI - Cardiovascular Cardiovascular ROS IM: as per HPI, lightheadedness (D/t left ear fullness), no chest pain, no diaphoresis, no dyspnea, no palpitations, no syncope - Respiratory Respiratory: no cough, no dyspnea, no wheezing, no excessive phlegm production - Gastrointestinal Gastrointestinal: as per HPI, heartburn, no abdominal pain, no diarrhea, no hematemesis, no hematochezia, no melena, no nausea, no vomiting - Genitourinary Genitourinary: no change in urinary stream, no dysuria, no flank pain, no hematuria Menstruation: as per HPI - Musculoskeletal Musculoskeletal ROS IM: as per HPI, back pain, no numbness, no tingling - Integumentary Integumentary IM: no rash, no unusual bruising - Neurological Neurological ROS: as per HPI, dizziness, no confusion, no convulsions, no focal weakness, no numbness, no tingling, no tremor(s) - Psychiatric Psychiatric: as per HPI, depression, other (Previous suicide attempt approx. 2.5 years ago) - Endocrine Endocrine IM: as per HPI - Hematologic/Lymphatic Hematologic/Lymphatic: no easy bruising - Allergic/Immunologic Allergic/Immunologic: as per HPI, lip swelling - Constitutional Vitals: Temp Pulse Resp BP Pulse Ox 98.4 F 70 15 123/81 95 02/16/18 12:43 02/16/18 12:43 02/16/18 12:43 02/16/18 12:43 02/16/18 12:43 General appearance: Present: cooperative, mild distress (Lip swelling), A&O X 3, pleasant, obese, answers questions appropriately Exam: Patient examined at bedside while resting comfortably in bed. Patient reports lip swelling but denies difficulty in breathing or throat swelling at present time. Patient discussed previous intubation attempts and failed tracheostomy attempt. Discussed previous suicide attempt approximately 2.5 years ago and patient currently denies any suicidal or homicidal ideations. Also discussed CODE STATUS with patient who chooses to be DNR CCA DNI and states she never wants to be intubated again. Reports strep throat three weeks ago and current sore throat and left ear pain. Will order rapid strep and respiratory infection panel. VS: 90 8.3F temp, HR 74, RR 15, BP 127/86, SPO2 95% on room air. - Head Head exam: Present: atraumatic, normocephalic - Eye Eye exam: Present: PERRL, conjuntiva pink, sclera anicteric Pupils: Present: PERRL - ENT ENT exam: Present: normal exam - Neck Neck exam general surgery: Present: normal inspection, supple, trachea midline. Absent: lymphadenopathy - Respiratory Respiratory exam: Present: CTAB. Absent: accessory muscle use, rales, rhonchi, wheezes - Cardiovascular Cardiovascular exam: Present: RRR, +S1, +S2. Absent: diastolic murmur, gallop, rubs, systolic murmur - GI/Abdominal GI/Abdominal exam: Present: normal bowel sounds, soft, no peritoneal signs. Absent: distended, tenderness - Rectal Rectal exam: Present: deferred - Additional comments: exam deferred. - Extremities Exam Extremities exam: Present: warm, radial pulses palpable and symmetrical. Absent: calf tenderness, cyanotic, pedal edema - Back Exam Back exam: Present: normal inspection - Neurological Exam Neurological exam: Present: alert, CN II-XII intact, oriented X3, no focal deficits. Absent: pronater drift, facial droop, speech deficit - Psychiatric Psychiatric exam: Present: normal affect, normal mood - Skin Skin exam: Present: dry, intact - Assessment and plan (1) EDA inhibitor-aggravated angioedema Status: Acute Assessment and plan: Acute EDA inhibitor aggravated angioedema of lips. Patient reports symptoms began yesterday afternoon with one-sided swelling of the right side of lips and became worse overnight. Reports sore throat (pt. states that she had strep thr oat 3 weeks ago) and left ear pain/fullness. Pt. states she was intubated for overdose during suicide attempt with difficult intubation due to restricted airway as well as failed trach attempt and states she does not want intubated ever again. Pt. states she wants to be DNRCCA DNI. Pt. denies difficulty breathing or throat swelling on exam. Was given 125 mg. IVP Solu-Medrol at [facility] as well as Benadryl. Pt. instructed to avoid lisinopril and losartan. Patient will need new HTN medication upon discharge. IVP hydralazine 10 mg every 6 hours when necessary for HTN w/parameters. Pt. to be monitored closely overnight for signs of worsening allergic rxn sx. Pt. discussed w/Dr. Mariee who agrees w/plan of care. Pt. is moderate risk for further morbidity and complications d/t current EDA inhibitor aggravated angioedema, history of difficult intubation with wishes to not be intubated again, and risk factors. Observation. Qualifiers: Encounter type: initial encounter Qualified Code(s): T78.3XXA - Angioneurotic edema, initial encounter; T46.4X5A - Adverse effect of qxczqkceiks-qmqdvdjvmz-hhcfqc inhibitors, initial encounter (2) GERD (gastroesophageal reflux disease) Status: Chronic Assessment and plan: Hx of chronic GERD. Continue pts. PO Prilosec. Will add IVP Protonix if Prilosec not effective in controlling GERD sx. IVP Phenergan 12.5 mg. Q6HR PRN for N/V. Qualifiers: Esophagitis presence: esophagitis presence not specified Qualified Code(s): K21.9 - Gastro-esophageal reflux disease without esophagitis (3) HTN (hypertension) Status: Chronic Assessment and plan: Hx of chronic HTN. Current allergy to lisinopril causing EDA inhibitor aggravated angioedema. Patient instructed to avoid lisinopril and losartan. Patient will need to be placed on new hypertension medication upon discharge. IVP hydralazine 10 mg every 6 hours when necessary with parameters. Qualifiers: Hypertension type: essential hypertension Qualified Code(s): I10 - Essential (primary) hypertension (4) Chronic back pain Status: Chronic Assessment and plan: Hx of chronic back pain in lower back r/t 3 deteriorated disks and fracture. Patient awaiting appointment for pain management. We will avoid NSAIDs due to h istory of GI bleeding. Tylenol for mild pain Ultram for moderate pain currently ordered. Patient has allergy to codeine. Qualifiers: Back pain location: low back pain Back pain laterality: midline Sciatica presence: unspecified whether sciatica present Qualified Code(s): M54.5 - Low back pain; G89.29 - Other chronic pain (5) Major depression, recurrent Status: Chronic Assessment and plan: Hx of recurrent major depression. Pt. states that her current medication is working to help her symptoms of depression. Continue pts. Clonazepam. Qualifiers: Active/Remission status: currently active Major depression episode severity: moderate Qualified Code(s): F33.1 - Major depressive disorder, recurrent, moderate (6) History of GI bleed Status: Resolved Assessment and plan: Hx of previous GI bleeding r/t NSAID use which required cauterization of stomach. Will avoid NSAIDs and continue pts. Prilosec. Will add IVP Protonix if PO Prilosec not effective. (7) History of DVT of lower extremity Status: Resolved Assessment and plan: Hx of previous DVT in E in February 2017. Was on Xarelto until August 2016. No symptoms since. Heparin SQ for DVT prophylaxis. Monitor. (8) Previous known suicide attempt Status: Resolved Assessment and plan: Hx of previous suicide attempt approx. 2.5 years ago from OD. Pt. denies any active or current SI/HI ideations. (9) DVT prophylaxis Status: Acute Assessment and plan: Heparin 5,000 units SQ Q8HR for DVT prophylaxis. Pt. had previous DVT in E in February 2017 and was on Xarelto until August 2017. Monitor. - Time Spent With Patient Total time spent is greater than 50% in coordination of care (as documented) at patient's floor/unit and/or counseling patient: Greater than 35 minutes <Peg Mariee - Last Filed: 02/20/18 07:59> Internal Medicine - H&P: HPI History of present illness: Ms. Peter is a 53 year old female All Systems PM: A 10-system review of systems was performed and is negative for pertinent findings except as documented above in the HPI. - Constitutional Vitals: Temp Pulse Resp BP Pulse Ox 97.7 F 68 16 112/69 99 02/17/18 07:30 02/17/18 07:30 02/17/18 07:30 02/17/18 07:30 02/17/18 07:30 Internal Med - H&P Results - Labs CBC & Chem 7: 02/17/18 04:20 02/17/18 04:20 - Assessment and plan (1) Major depression, recurrent Status: Chronic Qualifiers: Active/Remission status: currently active Major depression episode severity: moderate Qualified Code(s): F33.1 - Major depressive disorder, recu rrent, moderate (2) DVT prophylaxis Status: Acute (3) EDA inhibitor-aggravated angioedema Status: Resolved Qualifiers: Encounter type: initial encounter Qualified Code(s): T78.3XXA - Angioneurotic edema, initial encounter; T46.4X5A - Adverse effect of angio ttgool-cliimvlyhu-lcfpjc inhibitors, initial encounter (4) GERD (gastroesophageal reflux disease) Status: Chronic Qualifiers: Esophagitis presence: esophagitis presence not specified Qualified Code(s): K21.9 - Gastro-esophageal reflux disease without esophagitis (5) HTN (hypertension) Status: Chronic Qualifiers: Hypertension type: essential hypertension Qualified Code(s): I10 - Essential (primary) hypertension (6) History of GI bleed Status: Resolved (7) History of DVT of lower extremity Status: Resolved (8) Chronic back pain Status: Chronic Qualifiers: Back pain location: low back pain Back pain laterality: midline Sciatica presence: unspecified whether sciatica present Qualified Code(s): M54.5 - Low back pain; G89.29 - Other chronic pain (9) Previous known suicide attempt Status: Resolved (10) Strep throat Status: Acute - Time Spent With Patient Total time spent is greater than 50% in coordination of care (as documented) at patient's floor/unit and/or counseling patient: - Attending Attestation I personally and independently interviewed and examined the patient , and I reviewed the patient's medical record . I am in agreement with proposed assessment and proposed treatment plan. I discussed my findings and recommendation with the patient and answer his questions. The patient's medical records were edited to accurately reflect this encounter.
[2018-02-16 17:53] LABS: Adenovirus Not Detected (Not Detect); Bordetella Pertussis Not Detected (Not Detect); Chlamydophila pneumoniae Not Detected (Not Detect); Coronavirus 229E Not Detected (Not Detect); Coronavirus HKU1 Not Detected (Not Detect); Coronavirus NL63 Not Detected (Not Detect); Coronavirus OC43 Not Detected (Not Detect); Human Metapneumovirus Not Detected (Not Detect); Human Rhinovirus/Enterovirus Not Detected (Not Detect); Influenza A Subtype 2009 H1 Not Detected (Not Detect); Influenza A Untypeable Not Detected (Not Detect); Influenza B Not Detected (Not Detect); Mycoplasma pneumoniae Not Detected (Not Detect); Parainfluenza Virus 1 Not Detected (Not Detect); Parainfluenza Virus 2 Not Detected (Not Detect); Parainfluenza Virus 3 Not Detected (Not Detect); Parainfluenza Virus 4 Not Detected (Not Detect); Respiratory Syncytial Virus Not Detected (Not Detect)
[2018-02-16] MEDS: BENZOCAINE/MENTHOL 1 LOZENGE (BAG OF 6) MM SCH ×2 (18:02→22:59)
[2018-02-16] MEDS: Lactobacillus 1 EACH CAP.SPRINK PO SCH (18:44)
[2018-02-16] MEDS ORDERED: Chloraseptic Spray 177 ML BOTTLE MM PRN (20:26)
[2018-02-16] MEDS: cephALEXin 500 MG CAPSULE PO SCH (22:25)
[2018-02-16] MEDS: clonazePAM 1 MG TABLET PO SCH (22:26)
[2018-02-16] MEDS: *HR* Heparin 5,000 UNIT/ML VIAL SQ SCH (22:26)
[2018-02-16] MEDS: Acetaminophen 325 MG TABLET PO PRN (22:57)
[2018-02-17 04:59] LABS: Basophils % 0.1 %; Eosinophils % 0.1 %; Hemoglobin 13.3 g/dL (11.5-15.4); Immature Granulocytes % 0.4 % (0-4); Lymphocytes # 1.3 K/mcL (0.6-4.6); Lymphocytes % 9.3 %; Mean Corpuscular HGB Conc 33.3 g/dL (31.6-35.5); Mean Corpuscular Hemoglobin 30.5 pg (28.0-33.3); Mean Corpuscular Volume 91.7 fL (83.0-100.0); Mean Platelet Volume 10.4 fL (9.4-12.4); Monocytes # 0.6 K/mcL (0.0-1.3); Monocytes % 4.4 %; Neutrophils # 12.2 K/mcL (1.6-8.9); Platelet Count 242 K/mcL (140-400); Red Blood Count 4.36 M/mcL (3.82-4.97); Red Cell Distribution Width 12.8 % (11.5-14.5); Segmented Neutrophils % 85.7 %
[2018-02-17 05:22] LABS: Alanine Aminotransferase 26 Units/L (7-52); Albumin 3.9 g/dL (3.5-5.7); Albumin/Globulin Ratio 1.2 (1.1-2.2); Alkaline Phosphatase 84 Units/L (34-104); Aspartate Amino Transferase 19 Units/L (13-39); BUN/Creatinine Ratio 22 (6-26); Bilirubin,Total 0.4 mg/dL (0.3-1.0); Blood Urea Nitrogen 14 mg/dL (6-20); Calcium 9.5 mg/dL (8.6-10.3); Carbon Dioxide 24 mEq/L (23-29); Chloride 105 mEq/L (98-107); Chol/HDL Ratio 3.7 (0-4.9); Cholesterol 200 mg/dL (< 200); Globulin 3.2 g/dL (2.4-3.5); Glucose 161 mg/dL (70-105); HDL Cholesterol 54 mg/dL (40-59); LDL Cholesterol,Calculated 116 mg/dL (0-99); Magnesium 1.9 mg/dL (1.6-2.6); Osmolality,Calculated 290 (280-300); Potassium 3.8 mEq/L (3.5-5.1); Sodium 138 mEq/L (136-145); Total Protein 7.1 g/dL (6.4-8.9); Triglycerides 151 mg/dL (< 150); eGFR For Non-African Americans > 60 (> 60)
[2018-02-17] MEDS: *HR* Heparin 5,000 UNIT/ML VIAL SQ SCH (06:35)
[2018-02-17] MEDS: Acetaminophen 325 MG TABLET PO PRN (06:46)
[2018-02-17 06:48] LABS: Estimated Average Glucose 114 mg/dl; Hemoglobin A1C 5.6 %
[2018-02-17 07:31] VITALS: BP 112/69
[2018-02-17] MEDS ORDERED: Furosemide 20 MG TABLET PO SCH (09:00)
[2018-02-17] MEDS: clonazePAM 1 MG TABLET PO SCH (09:12)
[2018-02-17] MEDS: cephALEXin 500 MG CAPSULE PO SCH (09:12)
[2018-02-17] MEDS: Lactobacillus 1 EACH CAP.SPRINK PO SCH (09:12)
--- NOTE | 2018-02-17 09:23 | Discharge Summary ---
- NOTES TO OUTPATIENT PROVIDER Notes to Outpatient Provider: follow-up with your primary care physician within a week of hospital discharge. Orders not resulted at time of discharge: Pending orders 02/16/18 15:00 EKG [ECG 12 lead ECG] [ECG] Routine 02/18/18 04:00 Complete Blood Count [HEME] AM 0400 Comprehensive Metabolic Panel AM 0400 02/19/18 04:00 Complete Blood Count [HEME] AM 0400 Comprehensive Metabolic Panel AM 0400 Date of Encounter: 02/17/18 Time of Encounter: 09:19 - Discharge Diagnosis (1) EDA inhibitor-aggravated angioedema Priority: Primary Status: Resolved Qualifiers: Encounter type: initial encounter Qualified Code(s): T78.3XXA - Angioneurotic edema, initial encounter; T46.4X5A - Adverse effect of lrumlmfameb-hwofozdsnk-sfkogw inhibitors, initial encounter (2) Major depression, recurrent Priority: Secondary Status: Chronic Qualifiers: Active/Remission status: currently active Major depression episode severity: moderate Qualified Code(s): F33.1 - Major depressive disorder, recurrent, moderate (3) DVT prophylaxis Priority: Secondary Status: Acute (4) GERD (gastroesophageal reflux disease) Priority: Secondary Status: Chronic Qualifiers: Esophagitis presence: esophagitis presence not specified Qualified Code(s): K21.9 - Gastro-esophageal reflux disease without esophagitis (5) HTN (hypertension) Priority: Secondary Status: Chronic Qualifiers: Hypertension type: essential hypertension Qualified Code(s): I10 - Essential (primary) hypertension (6) History of GI bleed Priority: Secondary Status: Resolved (7) History of DVT of lower extremity Priority: Secondary Status: Resolved (8) Chronic back pain Priority: Secondary Status: Chronic Qualifiers: Back pain location: low back pain Back pain laterality: midline Sciatica presence: unspecified whether sciatica present Qualified Code(s): M54.5 - Low back pain; G89.29 - Other chronic pain (9) Previous known suicide attempt Priority: Secondary Status: Resolved (10) Strep throat Priority: Secondary Status: Acute Hospital course: Ms. Peter is a 53 year old female w/PMH of HTN, GERD, previous GI bleeding d/t NSAIDS, chronic back pain r/t 3 deteriorated discs and fx, hx of DVT in RLE in February 2017 (stopped Xarelto in August 2017), depression, and previous suicide attempt approx. 2.5 years ago. Patient presented to the ED due to swelling of her lips which was believed to be due to ACEs inhibitors. Patient also had a rapid strep throat test which was positive, for which the patient was started on antibiotics. Patient lip swelling has also completely resolved. Patient denies difficulty swallowing or breathing, denies nausea, vomiting or shortness of breath. reported that her lips are almost back to normal. Patient is clinically stable to be discharged. ACEs inhibitor has been discontinued. Recommended to follow up with her PCP within a week of hospital DC for possible antihypertensive medication adjusts. DC on medrol dosePack plus cephalexin. Recommended to continue the rest of her home medications except lisinopril. - Time Spent with Patient Total time spent providing and/or coordinating discharge services: - Discharge Medications Prescriptions: cephALEXin [Keflex] 500 mg PO TID 6 Days #18 capsule Home Medications: Bisacodyl [Dulcolax] 5 mg PO DAILY 04/10/17 [History] Baclofen [Lioresal] 10 mg PO TID 02/16/18 [History] Famotidine [Pepcid] 20 mg PO BID 02/16/18 [History] Furosemide [Lasix] 20 mg PO DAILY 02/16/18 [History] Omeprazole [PriLOSEC] 20 mg PO DAILY 02/16/18 [History] Trazodone HCl 100 mg PO HS PRN 02/16/18 [History] clonazePAM [Clonazepam] 1 mg PO TID 02/16/18 [History] Lactobacillus [Culturelle] 2 each PO DAILY cap.sprink 02/17/18 [Rx] cephALEXin [Keflex] 500 mg PO TID 6 Days #18 capsule 02/17/18 [Rx] Allergies/Adverse Reactions: Allergy/AdvReac Type Severity Reaction Status Date / Time lisinopril Allergy Swelling Verified 02/16/18 08:49 of Lip/Tongue/Throat morphine Allergy See Verified 02/16/18 09:07 Comments codeine AdvReac Itching Verified 05/06/17 15:56 naproxen AdvReac Gastrointestinal Verified 05/06/17 15:56 Upset Date of admission: 02/16/18 11:32 Primary care physician: Betzaida Grijalva, Consults: 02/16/18 14:24 Consult to [employer] Mdm Developer [CONS] Routine Reason for SW Consult: Please assess patient for possible home needs for post-discharge planning. - Constitutional Vitals: Temp Pulse Resp BP Pulse Ox 97.7 F 68 16 112/69 99 02/17/18 07:30 02/17/18 07:30 02/17/18 07:30 02/17/18 07:30 02/17/18 07:30 General appearance: Present: cooperative, mild distress (Lip swelling), A&O X 3, pleasant, obese, answers questions appropriately Exam: General: Alert and oriented x4. In no acute distress. Skin: Normal color, no rash, no lesions. HEENT: Angioedema of the lower lip almost completely resolved. EOM, pupils eq ual, round and reactive. Cardiovascular: RRR, Normal S1 & S2, no rubs, murmurs or gallops. Lungs: Clear to auscultation bilaterally, no wheezes or crackles. Abdomen: Obese, Soft, non-tender, no rigidity. NABS in all 4 quadrants. Extremities: No deformity, no edema or tenderness, no joint swelling or clubbing. Neurological: Normal cognition and motor skills. Rest of the physical exam is non contributory - Patient Status Disposition: Home, Self-Care Condition: Good Functional capacity at discharge: independent ambulation Overall status at discharge: patient is progressing back to baseline - Discharge Instructions Follow Up With: Betzaida Grijalva DO [Primary Care Provider] - - Diet and Activity Activity: resume usual activities as tolerated Diet: advance to your usual diet
== END 2018-02-17 10:24 | disposition home or self-care (01) ==
LOC: 3BNU
PROVIDERS: ADMIT Internal Medicine Nephrology; ATTEND Internal Medicine Nephrology

== ENCOUNTER 2019-12-08 23:37 | Observation (INO) ==
[2019-12-09 01:37] LABS: Basophils # 0.1 K/mcL (0.0-0.2); Basophils % 0.8 %; Eosinophils # 0.4 K/mcL (0.0-0.6); Eosinophils % 5.2 %; Hematocrit 47.6 % (35.3-44.9); Hemoglobin 15.3 g/dL (11.5-15.4); Immature Granulocytes % 0.7 % (0-4); Lymphocytes # 2.7 K/mcL (0.6-4.6); Lymphocytes % 36.2 %; Mean Corpuscular HGB Conc 32.1 g/dL (31.6-35.5); Mean Corpuscular Volume 96.6 fL (83.0-100.0); Monocytes # 0.5 K/mcL (0.0-1.3); Monocytes % 6.7 %; Neutrophils # 3.8 K/mcL (1.6-8.9); Platelet Count 237 K/mcL (140-400); Red Blood Count 4.93 M/mcL (3.82-4.97); Red Cell Distribution Width 11.9 % (11.5-14.5); Segmented Neutrophils % 50.4 %; White Blood Count 7.5 K/mcL (4.3-11.1)
[2019-12-09 01:52] LABS: Alanine Aminotransferase 40 Units/L (7-52); Albumin/Globulin Ratio 1.2 (1.1-2.2); Alkaline Phosphatase 119 Units/L (34-104); Aspartate Amino Transferase 34 Units/L (13-39); BUN/Creatinine Ratio 11 (6-26); Bilirubin,Total 0.4 mg/dL (0.3-1.0); Blood Urea Nitrogen 9 mg/dL (6-20); Carbon Dioxide 23 mEq/L (23-29); Chloride 101 mEq/L (98-107); Ethanol 53 mg/dL (Less than 10); Globulin 3.4 g/dL (2.4-3.5); Glucose 130 mg/dL (70-105); Osmolality,Calculated 282 (280-300); Potassium 3.6 mEq/L (3.5-5.1); Sodium 136 mEq/L (136-145); Total Protein 7.4 g/dL (6.4-8.9); eGFR For African Americans > 60 (> 60); eGFR For Non-African Americans > 60 (> 60)
[2019-12-09] MEDS: 0.9 % Sodium Chloride 1,000 ML IVC SCH ×3 (02:08→18:15)
[2019-12-09] MEDS ORDERED: *HR* LORazepam 2 MG/ML VIAL IVP PRN ×3 (02:21)
[2019-12-09] MEDS ORDERED: Naloxone 0.4 MG/ML INJ IVP PRN (02:21)
[2019-12-09] MEDS ORDERED: 0.9 % Sodium Chloride 1,000 ML IVC SCH (02:30)
[2019-12-09 06:00] LABS: Basophils # 0.1 K/mcL (0.0-0.2); Basophils % 0.8 %; Eosinophils # 0.4 K/mcL (0.0-0.6); Eosinophils % 5.1 %; Hematocrit 43.5 % (35.3-44.9); Hemoglobin 14.5 g/dL (11.5-15.4); Immature Granulocytes % 0.8 % (0-4); Lymphocytes # 2.6 K/mcL (0.6-4.6); Lymphocytes % 33.8 %; Mean Corpuscular HGB Conc 33.3 g/dL (31.6-35.5); Mean Corpuscular Hemoglobin 32.6 pg (28.0-33.3); Mean Corpuscular Volume 97.8 fL (83.0-100.0); Mean Platelet Volume 10.3 fL (9.4-12.4); Monocytes # 0.6 K/mcL (0.0-1.3); Monocytes % 8.1 %; Neutrophils # 3.9 K/mcL (1.6-8.9); Platelet Count 210 K/mcL (140-400); Red Blood Count 4.45 M/mcL (3.82-4.97); Segmented Neutrophils % 51.4 %; White Blood Count 7.6 K/mcL (4.3-11.1)
[2019-12-09] MEDS ORDERED: Acetaminophen 325 MG TABLET PO PRN (06:09)
[2019-12-09] MEDS: *HR* Heparin 5,000 UNIT/ML VIAL SQ SCH ×3 (06:18→19:10)
[2019-12-09 06:19] LABS: Alanine Aminotransferase 30 Units/L (7-52); Albumin 3.5 g/dL (3.5-5.7); Albumin/Globulin Ratio 1.2 (1.1-2.2); Alkaline Phosphatase 105 Units/L (34-104); Aspartate Amino Transferase 28 Units/L (13-39); BUN/Creatinine Ratio 15 (6-26); Bilirubin,Total 0.4 mg/dL (0.3-1.0); Blood Urea Nitrogen 10 mg/dL (6-20); Calcium 8.9 mg/dL (8.6-10.3); Carbon Dioxide 24 mEq/L (23-29); Chloride 103 mEq/L (98-107); Globulin 2.9 g/dL (2.4-3.5); Glucose 118 mg/dL (70-105); Osmolality,Calculated 282 (280-300); Potassium 3.5 mEq/L (3.5-5.1); Sodium 136 mEq/L (136-145); Total Protein 6.4 g/dL (6.4-8.9); eGFR For African Americans > 60 (> 60); eGFR For Non-African Americans > 60 (> 60)
[2019-12-09] MEDS ORDERED: tiZANidine 4 MG TABLET PO PRN (16:12)
[2019-12-09] MEDS: Sucralfate 1 GM TABLET PO SCH (17:38)
[2019-12-09] MEDS ORDERED: Thiamine (B-1) 100 MG, Folic Acid 1 MG, MVI, adult with vitamin K 10 ML in 0.9 % Sodi... IVPB SCH (18:00)
[2019-12-09] MEDS: clonazePAM 0.5 MG TABLET PO SCH (19:10)
[2019-12-10] MEDS ORDERED: Acetaminophen IV 1,000 MG/100 ML INFUS..BTL IVPB ONE (02:39)
[2019-12-10 04:48] LABS: Basophils # 0.1 K/mcL (0.0-0.2); Basophils % 0.9 %; Eosinophils # 0.4 K/mcL (0.0-0.6); Hematocrit 43.1 % (35.3-44.9); Hemoglobin 14.4 g/dL (11.5-15.4); Immature Granulocytes % 0.3 % (0-4); Lymphocytes # 2.3 K/mcL (0.6-4.6); Mean Corpuscular HGB Conc 33.4 g/dL (31.6-35.5); Mean Corpuscular Hemoglobin 32.1 pg (28.0-33.3); Mean Corpuscular Volume 96.2 fL (83.0-100.0); Mean Platelet Volume 10.2 fL (9.4-12.4); Monocytes # 0.6 K/mcL (0.0-1.3); Monocytes % 9.1 %; Neutrophils # 3.4 K/mcL (1.6-8.9); Platelet Count 197 K/mcL (140-400); Red Blood Count 4.48 M/mcL (3.82-4.97); Red Cell Distribution Width 11.9 % (11.5-14.5); Segmented Neutrophils % 49.7 %; White Blood Count 6.8 K/mcL (4.3-11.1)
[2019-12-10 05:06] LABS: BUN/Creatinine Ratio 14 (6-26); Blood Urea Nitrogen 9 mg/dL (6-20); Calcium 8.6 mg/dL (8.6-10.3); Carbon Dioxide 24 mEq/L (23-29); Chloride 106 mEq/L (98-107); Glucose 112 mg/dL (70-105); Magnesium 1.8 mg/dL (1.6-2.6); Osmolality,Calculated 281 (280-300); Potassium 3.6 mEq/L (3.5-5.1); Sodium 136 mEq/L (136-145); eGFR For African Americans > 60 (> 60); eGFR For Non-African Americans > 60 (> 60)
[2019-12-10 05:19] LABS: Thyroid Stimulating Hormone 4.378 mcIU/mL (0.340-5.600)
[2019-12-10] MEDS: Sucralfate 1 GM TABLET PO SCH ×2 (06:00→15:36)
[2019-12-10] MEDS: *HR* Heparin 5,000 UNIT/ML VIAL SQ SCH ×3 (06:00→20:07)
[2019-12-10] MEDS: clonazePAM 0.5 MG TABLET PO SCH ×3 (08:40→20:04)
[2019-12-10] MEDS: Furosemide 20 MG TABLET PO SCH (08:41)
[2019-12-10] MEDS: Thiamine (B-1) 100 MG TABLET PO SCH (08:41)
[2019-12-10] MEDS: Folic Acid 1 MG TABLET PO SCH (08:41)
[2019-12-10] MEDS: Loratadine 10 MG TABLET PO SCH (08:41)
[2019-12-10] MEDS: Vitamin B Complex/Vit C/Vit E 1 EACH TABLET PO SCH (08:41)
[2019-12-10] MEDS ORDERED: Sennosides/Docusate Sodium TABLET PO ONE (11:15)
[2019-12-11] MEDS: Sucralfate 1 GM TABLET PO SCH (04:48)
[2019-12-11] MEDS: *HR* Heparin 5,000 UNIT/ML VIAL SQ SCH (04:49)
[2019-12-11 06:25] LABS: Basophils # 0.1 K/mcL (0.0-0.2); Basophils % 0.8 %; Eosinophils # 0.3 K/mcL (0.0-0.6); Eosinophils % 4.1 %; Hematocrit 44.2 % (35.3-44.9); Hemoglobin 14.7 g/dL (11.5-15.4); Immature Granulocytes % 0.3 % (0-4); Lymphocytes # 1.9 K/mcL (0.6-4.6); Lymphocytes % 29.8 %; Mean Corpuscular HGB Conc 33.3 g/dL (31.6-35.5); Mean Corpuscular Hemoglobin 31.7 pg (28.0-33.3); Mean Corpuscular Volume 95.5 fL (83.0-100.0); Mean Platelet Volume 10.2 fL (9.4-12.4); Monocytes # 0.5 K/mcL (0.0-1.3); Monocytes % 7.8 %; Neutrophils # 3.7 K/mcL (1.6-8.9); Platelet Count 199 K/mcL (140-400); Red Blood Count 4.63 M/mcL (3.82-4.97); Red Cell Distribution Width 12.1 % (11.5-14.5); Segmented Neutrophils % 57.2 %; White Blood Count 6.5 K/mcL (4.3-11.1)
[2019-12-11 06:33] LABS: BUN/Creatinine Ratio 16 (6-26); Blood Urea Nitrogen 13 mg/dL (6-20); Calcium 9.5 mg/dL (8.6-10.3); Carbon Dioxide 27 mEq/L (23-29); Chloride 105 mEq/L (98-107); Glucose 132 mg/dL (70-105); Magnesium 1.8 mg/dL (1.6-2.6); Osmolality,Calculated 288 (280-300); Potassium 3.7 mEq/L (3.5-5.1); Sodium 138 mEq/L (136-145); eGFR For African Americans > 60 (> 60); eGFR For Non-African Americans > 60 (> 60)
[2019-12-11 07:53] VITALS: BP 134/80
[2019-12-11] MEDS: Thiamine (B-1) 100 MG TABLET PO SCH (08:04)
[2019-12-11] MEDS: Vitamin B Complex/Vit C/Vit E 1 EACH TABLET PO SCH (08:04)
[2019-12-11] MEDS: Furosemide 20 MG TABLET PO SCH (08:05)
[2019-12-11] MEDS: Folic Acid 1 MG TABLET PO SCH (08:05)
[2019-12-11] MEDS: Loratadine 10 MG TABLET PO SCH (08:05)
[2019-12-11] MEDS: clonazePAM 0.5 MG TABLET PO SCH (08:05)
== END 2019-12-11 11:14 | disposition home or self-care (01) ==
LOC: EMEROOARM 23:37 → 2ANU 23:37 → SUATTDRO 12-09 02:11 → 2ANU 12-09 02:55
PROVIDERS: ADMIT Student in an Organized Health Care Education/Training Program; ATTEND Pharmacist